=== PATIENT | female | born 1965 | race Caucasian/White ===

== ENCOUNTER 2024-07-02 07:13 | Inpatient (IN) ==
--- NOTE | 2024-07-02 07:29 | Emergency Department Note ---
Impression & Plan ST elevation (STEMI) myocardial infarction, SARS-CoV-2 positive, Atypical chest pain ED Provider Note NAME: MALKA FRYE AGE: 58 SEX: F : 1965 ARRIVES VIA: Walk-In INFORMANT: Patient, Nursing report ED PROVIDER(S): Taras Varghese MD CHIEF COMPLAINT: Chest discomfort, burping, arm pain, diaphoresis MEDICAL DECISION MAKING: Patient presents with the above. May be atypical presentation but initial EKG provided to me via nursing does show concern for possible developing inferior AK with changes anteriorly. IV was established and blood work was obtained along with heart alert being initiated concomitantly. Patient was ordered aspirin Brilinta and heparin as well as nitro. I did message the on-call ammonium nitrate neutralizer Dr. Davidson along with the associated EKG. I subsequently did speak with the patient to make her aware of the concerning findings. I also did speak with the on-call hospitalist service Dr. Steinberg and the patient was taken to the [facility] and pending admission to the medicine service. I also did speak with the vacuum cleaner assembler Dr. Holden to make him aware that the patient may be admitted to the intensive care unit postcatheterization. Prior to going up to the [facility] the patient did have an episode of vomiting as well as several runs of nonsustained ventricular tachycardia. Patient did have Zofran ordered as well as IV amiodarone bolus 150 mg. The patient did feel improved thereafter. The patient was emergently taken to the [facility]. Patient's blood work normal white count H&H and platelet count. Kidney function is unremarkable. LFTs unremarkable. Patient is positive for COVID-19. Initial troponin negative. Critical Care: I have personally spent 35 minutes of critical care time in direct management of this patient. This includes bedside care, interpretation of diagnostic studies, and testing, discussion with consultants, patient, and family members, and other require inpatient management activities. This 35 minutes is in excess of all separately billable procedures. Discussion w/ other healthcare providers: Dr. Davidson computer aided drafter Dr. Steinberg inpatient medicine service Dr. Loyola vacuum cleaner assembler Prior /Outside records reviewed: None Differential diagnosis: Cardiac ischemia, aortic dissection, pulmonary embolism, pneumothorax, pneumonia, pericarditis, myocarditis, GERD, cholecystitis, pancreatitis, musculoskeletal, as well as other pathologies were considered. Diagnostics, as interpreted by me: ECG: Normal sinus rhythm, rate of 66, normal intervals, normal axis, possible developing inferior AK with concavity noted in lead III. V2 depressions noted. No priors for comparison. Cardiac monitoring: An order was placed for continuous cardiac monitoring. The monitor shows a rate of 67 with sinus rhythm. Patient was placed on pulse oximetry Medical decision rules: None Imaging studies: I informally interpreted the patient's chest x-ray does not show obvious pneumonia or pneumothorax with formal report to follow. HPI: Patient presents due to concern for atypical centralized discomfort in the chest with feelings as though she has to burp. The patient does have bilateral arm pain especially with radiation of arm pain down the left arm. Patient states that she has had diaphoresis no reported nausea or vomiting that began at 6 AM while going to work. Patient states the symptoms been fairly constant. Father did have a CABG completed the age of 72. Patient does have a history of hypertension. She does take lisinopril. Non-smoker. Patient denies any cough or fever. No leg swelling or calf pain no history of DVT or PE. Patient denies any recent surgeries procedures or hospitalizations. The patient states that she is not currently established with a PCP but has [facility] in [facility] past. PAST MEDICAL HISTORY: See Below PAST SURGICAL HISTORY: See Below SOCIAL HISTORY: See Below HOME MEDICATIONS: See Below ALLERGIES: See Below VITALS: See Below PHYSICAL EXAMINATION: GENERAL: NAD, non-toxic. EYE EXAM: Normal conjunctiva. PERRL, no anisocoria and EOM's grossly intact w/o pain. OROPHARYNX: Moist mucus membranes, grossly normal dentition. NECK: Trachea midline, no stridor. Supple, no nuchal rigidity, no adenopathy, non-tender. No signs of meningismus. FROM of the neck with good chin to chest and neck extension. LUNGS: Clear to auscultation. Normal chest wall mechanics. HEART: NSR, no MRG. ABDOMEN: Abdomen soft, non-tender, no masses, no rebound or guarding. BACK: No CVA TTP. SKIN: No rashes and no bruising. UPPER EXTREMITIES: Upper extremities are grossly normal. LOWER EXTREMITIES: Grossly normal, no edema. NEURO EXAM: A&O x3, cranial nerves II-XII grossly intact, normal speech, moves all 4 extremities. Past Med/Surg History Problem List (Updated 07/02/24 @ 13:54 by Taras Varghese MD) Atypical chest pain (Acute) SARS-CoV-2 positive (Acute) CAD (coronary artery disease) ST elevation (STEMI) myocardial infarction (Acute) Medical History HLD (hyperlipidemia) HTN (hypertension) Surgical History Hx of colonoscopy Hx of hysterectomy Hx of appendectomy Hx laparoscopic cholecystectomy Family History Other Diabetes Hypertension Social History Smoking Status: Never smoker Second Hand Exposure: No; Do You Dip or Chew Tobacco: No; Tobacco Cessation Education Requested by Patient: No Hx Alcohol Use: No Hx Substance Use: No Preferred Language: Rwandan Communication Ability: Effective Brick Extruder Operator Required: No Beliefs That Will Affect Care: None Current Living Situation: Spouse Current Living Situation Comment: Lives with Other Information That Helps Us Care for You: No Feels Safe at Home: Yes Safety Concerns: Feels Safe At This Time Assistive Devices: None Allergies Allergies Allergy/AdvReac Type Severity Reaction Status Date / Time No Known Allergies Allergy Unverified 07/02/24 09:52 Home Meds Home Medications Medication Instructions Recorded Confirmed lisinopril 20 mg tablet 20 mg PO QAM 07/02/24 07/02/24 Results & Data (ED) Vital Signs Vital Signs - 24 hr 07/02/24 07:20 07/02/24 07:40 07/02/24 07:40 Pulse Rate 66 71 Pulse Rhythm Regular Respiratory Rate 20 17 Respiratory Effort / Characteristics Non-Labored Spontaneous Respiratory Depth Normal Respiratory Pattern Regular Blood Pressure 137/80 Blood Pressure Mean 99 Pulse Oximetry 100 100 100 Oxygen Delivery Method Room Air Room Air Room Air Oxygen Flow Rate 0 Sepsis Recent Fever Within 48 Hours No Sepsis New/Unexplained Change in Mental Status N/A Sepsis Action Taken by Nursing No Action Required 07/02/24 07:41 07/02/24 07:44 Pulse Rate 70 74 Pulse Rhythm Respiratory Rate 18 Respiratory Effort / Characteristics Respiratory Depth Respiratory Pattern Blood Pressure 120/93 Blood Pressure Mean 102 Pulse Oximetry 100 Oxygen Delivery Method Room Air Oxygen Flow Rate Sepsis Recent Fever Within 48 Hours Sepsis New/Unexplained Change in Mental Status Sepsis Action Taken by Assisted Medications Current Medication List: was personally reviewed by me Laboratory Data Attestation: I reviewed the patient's lab results. 07/02/24 09:56 07/02/24 07:39 Lab Results 07/02/24 07/02/24 Range/Units 07:39 07:44 WBC 7.15 (4.8-10.8) K/ul RBC 4.47 (4.20-5.40) M/uL Hgb 12.8 (12.0-16.0) g/dl POC Hgb 13.3 (12.0-16.0) g/dl Hct 38.3 (37.0-47.0) % POC Hct 39 (37-47) % MCV 85.7 (80.0-100.0) fL MCH 28.6 (25.0-34.0) pg MCHC 33.4 (32.0-36.0) g/dL RDW Std Deviation 40.0 (36.4-46.3) fL RDW Coeff of Meryl 12.9 (11.5-14.5) % Plt Count 243 (130-400) K/uL MPV 12.0 (9.4-12.4) fL Immature Gran % (Auto) 0.3 % Neut % (Auto) 47.6 % Lymph % (Auto) 42.0 % [place] % (Auto) 6.4 % Eos % (Auto) 2.4 % Baso % (Auto) 1.3 % Neut # (Auto) 3.41 (1.40-6.50) K/uL Lymph # (Auto) 3.00 (1.20-3.40) K/uL [place] # (Auto) 0.46 (0.11-0.59) K/uL Eos # (Auto) 0.17 (0.00-0.50) K/uL Baso # (Auto) 0.09 (0.00-0.20) K/uL Immature Gran # (Auto) 0.02 (0.01-0.20) K/uL PT 11.2 (9.0-12.0) Seconds INR 1.0 (0.9-1.1) APTT 24 (21-31) Seconds PTT Ratio 0.9 POC Sodium 139 (135-144) mmol/L Sodium 139 (136-145) mmol/L POC Potassium 3.5 (3.3-5.0) mmol/L Potassium 3.6 (3.5-5.1) mmol/L POC Chloride 103 (101-112) mmol/L Chloride 104 (98-107) mmol/L Carbon Dioxide 25 (21-32) mmol/L POC Total CO2 23 L (24-31) mmol/L Anion Gap 10 (3-11) POC Anion Gap 17.0 (16-25) mmol/L POC BUN 19 H (7-18) mg/dl BUN 17 (6-23) mg/dl Creatinine 0.64 (0.6-1.2) mg/dl POC Creatinine 0.7 (0.6-1.3) mg/dl Est Cr Clr Drug Dosing 96.5 ml/min eGFR 103.66 BUN/Creatinine Ratio 26.6 H (10-20) Glucose 159 H (70-99(Fasting)) mg/dl POC Glucose (other) 161 H (70-99) mg/dl Calcium 10.0 (8.6-10.3) mg/dl POC Ioniz Calcium Kelsie 1.20 (1.12-1.32) mmol/l Magnesium 1.9 (1.7-2.4) mg/dl Total Bilirubin 0.5 (0.2-1.0) mg/dl AST 28 (13-39) U/L ALT 34 (7-52) U/L Alkaline Phosphatase 83 (34-104) U/L Total Creatine Kinase 114 (26-192) U/L Troponin I High Sens 12.5 (0-14) pg/ml Total Protein 7.9 (6.0-8.3) gm/dl Albumin 4.6 (3.4-5.0) gm/dl Globulin 3.3 (2.5-4.0) gm/dl Albumin/Globulin Ratio 1.4 (0.9-2) Lipase 13 (11-82) U/L TSH 3.714 (0.300-4.500) uIu/ml SARS-CoV-2 (PCR) POSITIVE A (Negative) Administered Medications Eptifibatide (Integrilin) 75 mg in 100 mls @ 12.336 mls/hr IV .[id number] [facility]; Protocol Stop: 07/02/24 20:30 Last Admin: 07/02/24 09:53 Dose: 2 mcg/kg/min, 12.3 mls/hr Documented By: MEGAN Co-signed By: CHARMAINE Magnesium Sulfate/Dextrose (Magnesium Sulfate / D5w) 1 gm in 100 mls @ 50 mls/hr IV Q2H [facility] Stop: 07/02/24 14:14 Last Admin: 07/02/24 12:54 Dose: 50 mls/hr Documented By: Infusion: 07/02/24 12:54 Dose: Infused Documented By: Admin: 07/02/24 11:26 Dose: 50 mls/hr Documented By: MEGAN Lisinopril (Lisinopril 5 Mg Tab) 5 mg PO QAM [facility] Stop: 08/01/24 09:29 Last Admin: 07/02/24 11:30 Dose: Not Given Documented By: MEGAN Metoprolol Tartrate (Metoprolol Tartrate 25 Mg Tab) 25 mg PO BID [facility] Stop: 08/01/24 09:29 Last Admin: 07/02/24 11:26 Dose: 25 mg Documented By: MEGAN Miscellaneous (Icu Protocol For Hyperglycemia) 1 each N/A ACHS [facility] Stop: 07/04/24 11:29 Last Admin: 07/02/24 11:47 Dose: Not Given Documented By: MEGAN Potassium Chloride (Potassium Chloride Crtab 20 Meq Tabcr) 40 meq PO BID [facility] Stop: 07/02/24 21:01 Last Admin: 07/02/24 11:26 Dose: 40 meq Documented By: MEGAN Discontinued Medications Amiodarone HCl/Dextrose (Amiodarone 360mg / 200ml D5w ([facility] Use Only)) Confirm Administered Dose 360 mg IV .STK-MED ONE Stop: 07/02/24 08:25 Last Admin: 07/02/24 08:44 Dose: 360 mg Documented By: APPLE Amiodarone HCl (Amiodarone Hcl Inj 50 Mg/Ml 3 Ml Vial) Confirm Administered Dose 150 mg IV .STK-MED ONE Stop: 07/02/24 07:54 Last Admin: 07/02/24 08:44 Dose: 150 mg Documented By: APPLE Co-signed By: AURELIANO Aspirin (Aspirin Chew 324 Mg) 324 mg PO NOW STA Stop: 07/02/24 07:36 Last Admin: 07/02/24 07:46 Dose: 324 mg Documented By: ANT Atorvastatin Calcium (Atorvastatin 40 Mg Tab) 40 mg PO QAM [facility] Stop: 08/01/24 09:29 Last Admin: 07/02/24 12:00 Dose: 40 mg Documented By: MEGAN Clopidogrel Bisulfate (Clopidogrel Bisulfate 300 Mg Tab) Confirm Administered Dose 600 mg .ROUTE .STK-MED ONE Stop: 07/02/24 08:45 Last Admin: 07/02/24 08:51 Dose: 600 mg Documented By: [facility] Eptifibatide (Eptifibatide 2 Mg/Ml 10 Ml Vial ([facility] Use Only)) Confirm Administered Dose 20 mg IV .STK-MED ONE Stop: 07/02/24 08:46 Last Admin: 07/02/24 08:51 Dose: 6.8 ml Documented By: [facility] Eptifibatide (Eptifibatide 0.75 Mg/Ml 75mg Vial ([facility] Use Only)) Confirm Administered Dose 75 mg IV .STK-MED ONE Stop: 07/02/24 08:46 Last Admin: 07/02/24 08:50 Dose: 75 mg Documented By: [facility] Eptifibatide (Eptifibatide 2 Mg/Ml 10 Ml Vial ([facility] Use Only)) Confirm Administered Dose 20 mg IV .STK-MED ONE Stop: 07/02/24 08:54 Last Admin: 07/02/24 08:54 Dose: 6.8 ml Documented By: [facility] Fentanyl Citrate (Fentanyl Citrate Pf 100 Mcg/2 Ml Vial) Confirm Administered Dose 100 mcg .ROUTE .STK-MED ONE Stop: 07/02/24 07:41 Last Increment: 07/02/24 08:43 Dose: 50 mcg Documented By: [facility] Heparin Sodium (Porcine) (Heparin (Porcine) 1000 Unit/Ml 10 Ml ([facility] Use Only)) Confirm Administered Dose 10,000 units .ROUTE .STK-MED ONE Stop: 07/02/24 07:40 Last Admin: 07/02/24 08:52 Dose: 9,000 units Documented By: [facility] Heparin Sodium/Sodium Chloride (Heparin In Nss Infusion 1000 Unit/500 Ml (2 U/Ml) Bag) Confirm Administered Dose 3,000 units IV .STK-MED ONE Stop: 07/02/24 07:41 Last Admin: 07/02/24 08:43 Dose: 3,000 units Documented By: [facility] Amiodarone HCl/Dextrose (Nexterone / D5w) 360 mg in 200 mls @ 33.333 mls/hr IV ONE ONE; Protocol Stop: 07/02/24 15:37 Last Infusion: 07/02/24 12:06 Dose: Infused Documented By: MEGAN Co-signed By: CHARMAINE Admin: 07/02/24 09:53 Dose: 1 mg/min, 33.3 mls/hr Documented By: MEGAN Co-signed By: CHARMAINE Ioversol (Optiray 350) Confirm Administered Dose 1 ml .ROUTE .STK-MED ONE Stop: 07/02/24 07:42 Last Admin: 07/02/24 08:43 Dose: 160 ml Documented By: APPLE Midazolam HCl (Midazolam Hcl 1 Mg/Ml 2ml Vial) Confirm Administered Dose 2 mg .ROUTE .STK-MED ONE Stop: 07/02/24 07:40 Last Increment: 07/02/24 08:42 Dose: 1 mg Documented By: APPLE Nicardipine HCl (Nicardipine 2,000 Mcg/20 Ml Syr) Confirm Administered Dose 2,000 mcg .ROUTE .STK-MED ONE Stop: 07/02/24 07:40 Last Admin: 07/02/24 08:42 Dose: 2,000 mcg Documented By: APPLE Nitroglycerin (Nitroglycerin Sl 0.4 Mg/Tab Tab) 0.4 mg SL Q5M PRN PRN Reason: Chest Pain Stop: 08/01/24 07:34 Last Admin: 07/02/24 07:47 Dose: 0.4 mg Documented By: ANT Nitroglycerin/Dextrose (Nitroglycerin/D5w 100mcg/Ml 20ml Syr) Confirm Administered Dose 2,000 mcg .ROUTE .STK-MED ONE Stop: 07/02/24 07:42 Last Admin: 07/02/24 08:44 Dose: 2,000 mcg Documented By: APPLE Ondansetron HCl (Ondansetron Inj 2 Mg/Ml 2 Ml Vial) Confirm Administered Dose 4 mg .ROUTE .STK-MED ONE Stop: 07/02/24 07:53 Last Admin: 07/02/24 08:51 Dose: 4 mg Documented By: APPLE Ticagrelor (Ticagrelor 90 Mg Tab) 180 mg PO ONE ONE Stop: 07/02/24 07:36 Last Admin: 07/02/24 07:46 Dose: 180 mg Documented By: ANT Imaging Data Radiologist's Impression: Chest X-Ray 07/02/24 07:35 EXAM: XR chest 1V portable CLINICAL HISTORY: CHEST PAIN JTF TECHNIQUE: An X-ray image of the chest is obtained in frontal projection. COMPARISON: No prior studies are available for comparison. FINDINGS: Pulmonary Parenchyma: Lungs are clear bilaterally. No evidence of consolidation, collapse, or focal opacities. No pulmonary nodules are identified. No evidence of pleural effusion or pleural thickening. Heart and Mediastinum: Heart size and shape are normal. No mediastinal widening or masses. No hilar or mediastinal lymphadenopathy. Bony Thorax: Bony thorax appears intact without fractures or deformities. Soft Tissues: Soft tissues overlying the chest wall are unremarkable. IMPRESSION: No acute cardiopulmonary abnormalities are identified. Electronically signed by Kait Flores 07-02-2024 08:32 AM Discharge Plan Visit Data Chief Complaint: Illness Stated Complaint: ACHES, BURP FEELING, NOT FEELING RIGHT, LOW SUGAR? ED Provider: Taras Varghese Discharge Problem: ST elevation (STEMI) myocardial infarction, SARS-CoV-2 positive, Atypical chest pain Patient Disposition: Admitted As Inpatient Discharge Problem: ST elevation (STEMI) myocardial infarction Qualifiers: Involved coronary artery: left circumflex coronary artery Qualified Code(s): I 21.21 - ST elevation (STEMI) myocardial infarction involving left circumflex coronary artery
[2024-07-02] MEDS ORDERED: Heparin IV Adult Wt-Based Low-Dose w/ INITIAL Bolus Protocol STA (07:35)
[2024-07-02] MEDS: TICAGRELOR 90 MG TAB PO ONE (07:46)
[2024-07-02] MEDS: ASPIRIN CHEW 324 MG PO STA (07:46)
[2024-07-02] MEDS: NITROGLYCERIN SL 0.4 MG/TAB TAB SL PRN (07:47)
--- NOTE | 2024-07-02 07:54 | Critical Care Consultation ---
Date of Consultation July 02, 2024 Assessment & Plan (1) ST elevation (STEMI) myocardial infarction: Aspirin, beta-mitch, YONIS inhibitor, finishing Integrilin infusion, statin (2) SARS-CoV-2 positive: No hypoxia, this may be an incidental finding, isolation until discharge. (3) CAD (coronary artery disease): History of Present Illness Reason for Consultation: Status post ST elevation MA History of Present Illness Patient is a 58-year-old female who awoke this morning with chest discomfort. She sought treatment in [facility]'s emergency department and was diagnosed with an ST elevation MA. 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 She had nonsustained runs of ventricular tachycardia and was started on amiodarone drip. She has not had recurrence of arrhythmia while in the ICU and is currently without complaint. Allergies Allergy/AdvReac Type Severity Reaction Status Date / Time No Known Allergies Allergy Unverified 07/02/24 09:52 Home Medications Medication Instructions Recorded Confirmed Type lisinopril 20 mg tablet 20 mg PO QAM 07/02/24 07/02/24 History Patient History Medical History HLD (hyperlipidemia) HTN (hypertension) Surgical History Hx of colonoscopy Hx of hysterectomy Hx of appendectomy Hx laparoscopic cholecystectomy Family History Other Diabetes Hypertension Social History Smoking Status: Never smoker Second Hand Exposure: No; Do You Dip or Chew Tobacco: No; Tobacco Cessation Education Requested by Patient: No Hx Alcohol Use: No Hx Substance Use: No Preferred Language: Swedish Communication Ability: Effective Disciplinary Hearing Officer Required: No Beliefs That Will Affect Care: None Current Living Situation: Spouse Current Living Situation Comment: Lives with Other Information That Helps Us Care for You: No Feels Safe at Home: Yes Safety Concerns: Feels Safe At This Time Assistive Devices: None Physical Exam Physical Exam: General: Alert. nontoxic. Skin: Warm, dry, Head: Atraumatic Ears, nose, mouth and throat: airway patent Cardiovascular: Normal peripheral perfusion Respiratory: no respiratory distress Gastrointestinal: Non distended Musculoskeletal: No deformity Results & Data Results & Data Vital Signs (Past 12 Hours) Vital Signs Pulse Resp BP Pulse Ox O2 Del Method O2 Flow Rate 07/02/24 07:44 74 18 120/93 100 Room Air 07/02/24 07:41 70 07/02/24 07:40 71 17 100 Room Air 07/02/24 07:40 100 Room Air 0 07/02/24 07:20 66 20 137/80 100 Room Air Critical Care Results & Data Vital Signs (Past 12 Hours) Vital Signs Temp Pulse Pulse Resp BP Pulse Ox O2 Del Method 07/02/24 13:35 36.6 C 07/02/24 12:47 36.6 C 07/02/24 11:03 68 15 98 07/02/24 10:42 70 16 100 Room Air 07/02/24 10:39 108/82 07/02/24 10:18 66 12 98 07/02/24 10:15 70 20 98 07/02/24 10:06 73 19 99 07/02/24 09:58 36.8 C 69 11 L 97 Room Air 07/02/24 09:50 70 07/02/24 09:45 73 20 99 Room Air 07/02/24 09:42 132/87 07/02/24 09:15 68 14 99 Room Air 07/02/24 09:00 68 14 99 Room Air 07/02/24 07:44 74 18 120/93 100 Room Air 07/02/24 07:41 70 07/02/24 07:40 71 17 100 Room Air 07/02/24 07:40 100 Room Air 07/02/24 07:20 66 20 137/80 100 Room Air O2 Flow Rate 07/02/24 13:35 07/02/24 12:47 07/02/24 11:03 07/02/24 10:42 07/02/24 10:39 07/02/24 10:18 07/02/24 10:15 07/02/24 10:06 07/02/24 09:58 07/02/24 09:50 07/02/24 09:45 07/02/24 09:42 07/02/24 09:15 07/02/24 09:00 07/02/24 07:44 07/02/24 07:41 07/02/24 07:40 07/02/24 07:40 0 07/02/24 07:20 Lab & Micro Results (Past 24 Hours) RBC 4.07 M/uL (4.20-5.40) L 07/02/24 WBC 7.25 K/ul (4.8-10.8) 07/02/24 Hgb 12.0 g/dl (12.0-16.0) 07/02/24 Hct 35.4 % (37.0-47.0) L 07/02/24 MCV 87.0 fL (80.0-100.0) 07/02/24 MCH 29.5 pg (25.0-34.0) 07/02/24 MCHC 33.9 g/dL (32.0-36.0) 07/02/24 RDW Standard Deviation 40.6 fL (36.4-46.3) 07/02/24 RDW Coefficient of Variation 12.7 % (11.5-14.5) 07/02/24 Plt Count 228 K/uL (130-400) 07/02/24 MPV 12.0 fL (9.4-12.4) 07/02/24 Neutrophils (%) (Auto) 79.3 % 07/02/24 Lymphocytes (%) (Auto) 14.9 % 07/02/24 Monocytes # (Auto) 0.33 K/uL (0.11-0.59) 07/02/24 Eosinophils # (Auto) 0.02 K/uL (0.00-0.50) 07/02/24 Immature Granulocyte % (Auto) 0.3 % 07/02/24 Neutrophils # (Auto) 5.76 K/uL (1.40-6.50) 07/02/24 Lymphocytes # (Auto) 1.08 K/uL (1.20-3.40) L 07/02/24 Monocytes # (Auto) 0.33 K/uL (0.11-0.59) 07/02/24 Eosinophils # (Auto) 0.02 K/uL (0.00-0.50) 07/02/24 Basophils # (Auto) 0.04 K/uL (0.00-0.20) 07/02/24 Immature Granulocyte # (Auto) 0.02 K/uL (0.01-0.20) 4 Na 139 mmol/L (136-145) 07/02/24 K 3.6 mmol/L (3.5-5.1) 07/02/24 Cl 104 mmol/L (98-107) 07/02/24 CO2 25 mmol/L (21-32) 07/02/24 Anion Gap 10 (3-11) 07/02/24 BUN 17 mg/dl (6-23) 07/02/24 Creatinine 0.64 mg/dl (0.6-1.2) 07/02/24 BUN/Creatinine Ratio 26.6 (10-20) H 07/02/24 Glu 159 mg/dl (70-99(Fasting)) H 07/02/24 Ca 10.0 mg/dl (8.6-10.3) 07/02/24 Total Bilirubin 0.5 mg/dl (0.2-1.0) 07/02/24 AST 28 U/L (13-39) 07/02/24 ALT 34 U/L (7-52) 07/02/24 Alkaline Phosphatase 83 U/L (34-104) 07/02/24 TP 7.9 gm/dl (6.0-8.3) 07/02/24 Albumin 4.6 gm/dl (3.4-5.0) 07/02/24 Globulin 3.3 gm/dl (2.5-4.0) 07/02/24 Albumin/Globulin Ratio 1.4 (0.9-2) 07/02/24 Mg 1.9 mg/dl (1.7-2.4) 07/02/24 07:39 Calcium Level 10.0 mg/dl (8.6-10.3) 07/02/24 07:39 Prothromb Time International Ratio 1.0 (0.9-1.1) 07/02/24 07:3 9 Diagnostic Findings (Past 24 Hours) Chest X-Ray 07/02/24 07:35 EXAM: XR chest 1V portable CLINICAL HISTORY: CHEST PAIN JTF TECHNIQUE: An X-ray image of the chest is obtained in frontal projection. COMPARISON: No prior studies are available for comparison. FINDINGS: Pulmonary Parenchyma: Lungs are clear bilaterally. No evidence of consolidation, collapse, or focal opacities. No pulmonary nodules are identified. No evidence of pleural effusion or pleural thickening. Heart and Mediastinum: Heart size and shape are normal. No mediastinal widening or masses. No hilar or mediastinal lymphadenopathy. Bony Thorax: Bony thorax appears intact without fractures or deformities. Soft Tissues: Soft tissues overlying the chest wall are unremarkable. IMPRESSION: No acute cardiopulmonary abnormalities are identified. Electronically signed by Kait Flores 07-02-2024 08:32 AM I & O Totals 24 Hours 07/01/24 07/02/24 07/03/24 06:59 06:59 06:59 Intake Total 347.148 / 347.148 Balance 347.148 / 347.148 Cumulative 07/02/24 07:13 thru 07/02/24 14:25 Intake Total 347.148 Balance 347.148 RT Ventilator Mngmt (Last Documented) Ventilator Ordered Settings Respiratory Rate 15 07/02/24 11:03 Ventilator - PT Measurements Respiratory Rate 15 Coding Level of Care Code 18324 IN/OBS CONSULT LVL 2,35M Diagnoses ST elevation (STEMI) myocardial infarction I21.21 Involved coronary artery: left circumflex coronary artery SARS-CoV-2 positive U07.1 Coronary artery disease involving pilot station coronary artery of pilot station heart without angina pectoris I25.10 Coronary Disease-Associated Artery/Lesion type: pilot station artery [place] vs. transplanted heart: pilot station heart Associated angina: without angina (1) ST elevation (STEMI) myocardial infarction Involved coronary artery: left circumflex coronary artery Qualified Code(s): I21.21 - ST elevation (STEMI) myocardial infarction involving left circumflex coronary artery (3) CAD (coronary artery disease) Coronary Disease-Associated Artery/Lesion type: pilot station artery [place] vs. transplanted heart: pilot station heart Associated angina: without angina Qualified Code(s): I25.10 - Atherosclerotic heart disease of pilot station coronary artery without angina pectoris
[2024-07-02 07:56] LABS: iSTAT Creatinine 0.7 mg/dl (0.6-1.3); iSTAT Hemoglobin 13.3 g/dl (12.0-16.0); iSTAT Ionized Calcium 1.2 mmol/l (1.12-1.32); iSTAT Potassium 3.5 mmol/L (3.3-5.0)
[2024-07-02 08:00] LABS: Basophils # (auto) 0.09 K/uL (0.00-0.20); Basophils % (auto) 1.3 %; Eosinophils # (auto) 0.17 K/uL (0.00-0.50); Eosinophils % (auto) 2.4 %; Hematocrit (blood only) 38.3 % (37.0-47.0); Hemoglobin 12.8 g/dl (12.0-16.0); Immature Granulocytes # (auto) 0.02 K/uL (0.01-0.20); Immature Granulocytes % (auto) 0.3 %; Mean Corpuscular Hemoglobin 28.6 pg (25.0-34.0); Mean Corpuscular Hgb Conc 33.4 g/dL (32.0-36.0); Mean Corpuscular Volume 85.7 fL (80.0-100.0); Monocytes # (auto) 0.46 K/uL (0.11-0.59); Monocytes % (auto) 6.4 %; Neutrophils # (auto) 3.41 K/uL (1.40-6.50); Neutrophils % (auto) 47.6 %; Platelet Count 243 K/uL (130-400); RDW Coefficient of Variation 12.9 % (11.5-14.5); Red Blood Count 4.47 M/uL (4.20-5.40); White Blood Count 7.15 K/ul (4.8-10.8)
[2024-07-02 08:22] LABS: Albumin Globulin Ratio 1.4 (0.9-2); Albumin Level 4.6 gm/dl (3.4-5.0); BUN Creatinine Ratio 26.6 (10-20); Bilirubin,Total 0.5 mg/dl (0.2-1.0); Creatinine Clr Calc Pharmacy 96.5 ml/min; Globulin 3.3 gm/dl (2.5-4.0); Magnesium 1.9 mg/dl (1.7-2.4); Potassium 3.6 mmol/L (3.5-5.1); Total Protein 7.9 gm/dl (6.0-8.3)
[2024-07-02 08:26] LABS: Partial Thromboplastin Ratio 0.9; Partial Thromboplastin Time 24 Seconds (21-31); Prothrombin Time 11.2 Seconds (9.0-12.0)
[2024-07-02 08:28] LABS: Troponin I High Sensitivity 12.5 pg/ml (0-14)
--- NOTE | 2024-07-02 08:33 | XRay Report ---
EXAM: XR chest 1V portable CLINICAL HISTORY: CHEST PAIN JTF TECHNIQUE: An X-ray image of the chest is obtained in frontal projection. COMPARISON: No prior studies are available for comparison. FINDINGS: Pulmonary Parenchyma: Lungs are clear bilaterally. No evidence of consolidation, collapse, or focal opacities. No pulmonary nodules are identified. No evidence of pleural effusion or pleural thickening. Heart and Mediastinum: Heart size and shape are normal. No mediastinal widening or masses. No hilar or mediastinal lymphadenopathy. Bony Thorax: Bony thorax appears intact without fractures or deformities. Soft Tissues: Soft tissues overlying the chest wall are unremarkable. IMPRESSION: No acute cardiopulmonary abnormalities are identified. Electronically signed by Kait Flores 07-02-2024 08:32 AM
[2024-07-02 08:37] LABS: Thyroid Stimulating Hormone 3.714 uIu/ml (0.300-4.500)
[2024-07-02] MEDS: MIDAZOLAM HCL 1 MG/ML 2ML VIAL ONE (08:42)
[2024-07-02] MEDS: niCARdipine 2,000 MCG/20 ML SYR ONE (08:42)
[2024-07-02] MEDS: HEPARIN (PORCINE) 1000 UNIT/ML 10 ML (CATH LAB USE ONLY) ONE (08:42)
[2024-07-02] MEDS: OPTIRAY 350 ONE (08:43)
[2024-07-02] MEDS: fentaNYL citrate PF 100 MCG/2 ML VIAL ONE (08:43)
[2024-07-02] MEDS: AMIODARONE 360MG / 200ML D5W (CATH LAB USE ONLY) IV ONE (08:44)
[2024-07-02] MEDS: AMIODARONE HCL INJ 50 MG/ML 3 ML VIAL IV ONE (08:44)
[2024-07-02] MEDS: NITROGLYCERIN/D5W 100MCG/ML 20ML SYR ONE (08:44)
[2024-07-02] MEDS ORDERED: ONDANSETRON INJ 2 MG/ML 2 ML VIAL IV PRN (08:49)
[2024-07-02] MEDS ORDERED: ACETAMINOPHEN 325 MG TAB PO PRN (08:49)
[2024-07-02] MEDS ORDERED: EPTIFIBATIDE BOLUS/DRIP IV STA (08:49)
[2024-07-02] MEDS ORDERED: ATROPINE SULFATE 0.1 MG/ML 10ML SYR IV PRN (08:49)
[2024-07-02] MEDS: EPTIFIBATIDE 0.75 MG/ML 75MG VIAL (CATH LAB USE ONLY) IV ONE (08:50)
[2024-07-02] MEDS: ONDANSETRON INJ 2 MG/ML 2 ML VIAL ONE (08:51)
[2024-07-02] MEDS: EPTIFIBATIDE 2 MG/ML 10 ML VIAL (CATH LAB USE ONLY) IV ONE ×2 (08:51→08:54)
[2024-07-02] MEDS: CLOPIDOGREL BISULFATE 300 MG TAB ONE (08:51)
--- NOTE | 2024-07-02 08:57 | Pre Anesthesia Assessment ---
Date of Service July 02, 2024 Pre Sedation Assessment Vital Signs Pulse Resp BP Pulse Ox O2 Del Method O2 Flow Rate 07/02/24 07:44 74 18 120/93 100 Room Air 07/02/24 07:41 70 07/02/24 07:40 71 17 100 Room Air 07/02/24 07:40 100 Room Air 0 07/02/24 07:20 66 20 137/80 100 Room Air Cardiovascular Additional Comments: Irregular rhythm. Normal rate. No murmur. Respiratory normal respiratory effort, lungs clear to auscultation Pre-Sedation Airway Assessment Smoking Status: Never smoker Mallampati 2 ASA 4 Notes The planned sedation has been discussed with the patient. Informed Consent was obtained. I have identified the patient, determined the appropriateness of sedation and have assessed the patient immediately prior to the procedure. All medicine(s) and interventions are by my order.
--- NOTE | 2024-07-02 08:58 | Post Anesthesia Assessment ---
Date of Service July 02, 2024 Post Sedation Assessment Vital Signs Pulse Resp BP Pulse Ox O2 Del Method O2 Flow Rate 07/02/24 07:44 74 18 120/93 100 Room Air 07/02/24 07:41 70 07/02/24 07:40 71 17 100 Room Air 07/02/24 07:40 100 Room Air 0 07/02/24 07:20 66 20 137/80 100 Room Air Recovery Score Activity: Moves 4 extremities Respiration: Deep Breath/Cough Circulation: +/-20% PreAnes Value Consciousness: Fully Awake Oxygen Saturation: > 92% On Room Air Discharge Sedation Level of Care: Fast Track Phase II Post Sedation Plan On clinical assessment, the patient appears to have tolerated the sedation without complications. Patient is recovering as anticipated. Patient will continue to be monitored by nursing and may be discharged when sedation discharge criteria are met per below protocol. Upon Completions of procedure up to 15 minutes continue every 5 minute vital signs and the P.A.R. score; then discharge to a Phase I or Fast Track to Phase II per the following guidelines: * Discharge Patient to appropriate Phase II area if PAR is 8 or greater or return to pre- procedure baseline. The post - procedure orders will be as directed. * If PAR score is less than 8 or not return to pre-procedure baseline then patient will follow Phase I monitoring till PAR is reached for Phase II. The Phase I may be done in procedure room or may call to secure a Phase I area. * If naloxone or flumazenil are used for reversal, hold in Phase I for continued monitoring from when last reversal dose was given for a minimum of 60 minutes or longer pending the nurse and/or physician discretion of patient condition before discharge to Phase II. Please call the Sedation Physician to re-evaluate and complete post-note for discharge to Phase II area. Do NOT discharge from procedure sedation or Phase 1 until post- sedation evaluation note is complete by procedure /sedation MD Sedation Discharge Instructions to be given to the patient at discharge to home. [facility] Procedure Codes (Charges) Indication for Procedure Indication for procedure: Acute WI Sedation/Anesthesia Procedure 1: Sedation/Anesthesia: 83955 Mod Sedation by the same physician;Init15 Min Child Age 5 & Up Total Sedation Time (minutes): 32 Procedure 2: Sedation/Anesthesia: 24818 Mod Sedation by the same physician; Ea [id number] Minutes Total Sedation Time (minutes): 17
[2024-07-02] MEDS ORDERED: 0.2 MICRON FILTER SET 1 EACH IV ONE (09:38)
[2024-07-02] MEDS ORDERED: AMIODARONE IV BOLUS & DRIP IV STA (09:38)
[2024-07-02] MEDS ORDERED: Patient's ALLERGY Info needs ENTERED SCH (09:45)
[2024-07-02] MEDS: AMIODARONE / D5W 360 MG/200 ML BAG IV ONE (09:53)
[2024-07-02] MEDS: EPTIFIBATIDE 75 MG/100 ML VIAL IV SCH (09:53)
--- NOTE | 2024-07-02 10:12 | History & Physical Report ---
Date of Service July 02, 2024 Assessment & Plan (1) ST elevation (STEMI) myocardial infarction: (2) CAD (coronary artery disease): (3) HTN (hypertension): (4) SARS-CoV-2 positive: Plan #Acute STEMI #CAD #VTach pt currently admitted to ICU under care of pulmonary care nurse and interventionalist S/P PCI with KADEN x 3 - awaiting full cath report GDMT with ASA, plavix, Statin, metoprolol and lisinopril ordered currently on IV Amiodarone gtt due to runs of Vtach in ED will replace Magnesium and K to keep > 2.0 and 4.0 respectively cycle trops til peak, echocardiogram [facility] cardiology consulted #HTN: on lisinopril 20mg [employer]IG[employer]IVE [employer]ENT, currently on 5mg, uptitrate based on need, Bp curently 120/93 #Sars COV-2: pt asymptomatic, no medical therapy indicated #DVT ppx: Pt currently on Integrilin, add scds FULL CODE PCP: previously was [facility], will need to establish with another provider, unsure if she wants to continue with [facility], will need to inquire prior to d/c Dispo: admitted to ICU Pt was seen and examined in collaboration with Dr. Steinberg, please see addendum I spent a total of 76 minutes reviewing notes, outpatient records, labs, medication, coordinating, documenting and providing care for this patient excluding time spent in the performance of separately billed services. Admission and Anticipated Discharge Date Admission Date: July 02, 2024 History of Present Illness Chief Complaint: Chest discomfort and bilateral arm pain prior to arrival. Primary Care Provider: NO PCP This is a 58 yr old F who has a known PMH of HTN who presented to ED 2/2 chest discomfort and bilateral arm pain. She states when she woke up this morning she felt a discomfort on her chest, "like I had to burp." It was associated with bilateral arm pain and diaphoresis. "I felt as if I had low sugar." She denied any lightheaded, dizziness, SOB, cough, hemoptysis, palpitations or nausea. Upon arrival to the ED she did have an episode of vomiting. In ED she had ECG changes concerning for developing inferior OH with changes in Leads III, AVF. A heart alert was called. Per ICU report pt had a few runs of Vtach in the ED; therefore she was started on Amiodarone gtt. Pt was sent to microbiology lab manager where she received 3 KADEN to circumflex. Final report from Dr. Neri is still pending. Pt is in bed with and son at bedside. She is tearful. She reports continued bilateral arm pain, but it is much less severe. She denies Chest pain, sob, dizziness, lightheaded, cough, n or v. She denies hx of similar sx in the past. She denies tobacco use or drug use. She does socially drink alcohol but not on a regular basis. She has a FH of CAD in grandparents and Father had CABG in his 70s. Previously followed with Dr. Nelson, but reports she currently doesn't have a PCP. She has been compliant with her daily lisinopril. Allergies Allergy/AdvReac Type Severity Reaction Status Date / Time No Known Allergies Allergy Unverified 07/02/24 09:52 Home Medications Medication Instructions Recorded Confirmed Type lisinopril 20 mg tablet 20 mg PO QAM 07/02/24 07/02/24 History Past Med/Surg History Problem List SARS-CoV-2 positive CAD (coronary artery disease) ST elevation (STEMI) myocardial infarction Medical History HLD (hyperlipidemia) HTN (hypertension) Surgical History Hx of colonoscopy Hx of hysterectomy Hx of appendectomy Hx laparoscopic cholecystectomy Family History Other Diabetes Hypertension Social History Smoking Status: Never smoker Second Hand Exposure: No; Do You Dip or Chew Tobacco: No; Tobacco Cessation Education Requested by Patient: No Hx Alcohol Use: No Hx Substance Use: No Preferred Language: French Communication Ability: Effective [place] Required: No Beliefs That Will Affect Care: None Current Living Situation: Spouse Current Living Situation Comment: Lives with Other Information That Helps Us Care for You: No Feels Safe at Home: Yes Safety Concerns: Feels Safe At This Time Assistive Devices: None Review of Systems Review of Systems: All systems reviewed & are unremarkable except as noted in HPI & below Physical Exam Physical Exam: Constitutional: WD/WN, vitals as above, NAD, sitting up in bed, pleasant but tearful, conversing easily Head: Normocephalic, Atraumatic Eyes: PERRL, conjunctivae normal, anicteric sclerae ENMT: external ear and nose normal, oropharynx normal Neck: trachea midline, no thyromegaly normal visual inspection Respiratory: normal respiratory effort, lungs clear to auscultation, no wheeze, rales, rhonchi. Normal insp/exp effort, no accessory muscle use Cardiovascular: RRR, no murmur, no edema, + R radial band intact, R hand cool b ut good cap refill, denies pain/numbness Vessels: no JVD or carotid bruit Chest: normal inspection of chest Abdomen: normal bowel sounds, soft, nontender, no hepatosplenomegaly Musculoskeletal: no cyanosis or clubbing, arom x 4 Skin: no rashes, warm and dry normal turgor Neurologic: PERRL, EOMI, accommodation nl, no face palsy, no dysarthria CN's II-XI intact bilaterally and moves all extremities Psychiatric: A+Ox3, euthymic affect Lymphatic: no cervical or axillary lymphadenopathy : deferred Results & Data Results & Data Vital Signs (Past 12 Hours) Vital Signs Pulse Pulse Resp BP Pulse Ox O2 Del Method O2 Flow Rate 07/02/24 09:15 68 14 99 Room Air 07/02/24 09:00 68 14 99 Room Air 07/02/24 07:44 74 18 120/93 100 Room Air 07/02/24 07:41 70 07/02/24 07:40 71 17 100 Room Air 07/02/24 07:40 100 Room Air 0 07/02/24 07:20 66 20 137/80 100 Room Air Laboratory Results I have independently reviewed and interpreted patient's admitting labs including CBC, CMP, PTT, PT/INR, mag and troponin. Diagnostic Findings Chest X-Ray 07/02/24 07:35 EXAM: XR chest 1V portable CLINICAL HISTORY: CHEST PAIN JTF TECHNIQUE: An X-ray image of the chest is obtained in frontal projection. COMPARISON: No prior studies are available for comparison. FINDINGS: Pulmonary Parenchyma: Lungs are clear bilaterally. No evidence of consolidation, collapse, or focal opacities. No pulmonary nodules are identified. No evidence of pleural effusion or pleural thickening. Heart and Mediastinum: Heart size and shape are normal. No mediastinal widening or masses. No hilar or mediastinal lymphadenopathy. Bony Thorax: Bony thorax appears intact without fractures or deformities. Soft Tissues: Soft tissues overlying the chest wall are unremarkable. IMPRESSION: No acute cardiopulmonary abnormalities are identified. Electronically signed by Kait Flores 07-02-2024 08:32 AM Medications Administered Current Inpatient Medications Acetaminophen (Acetaminophen 325 Mg Tab) 650 mg PO Q4H PRN PRN Reason: MILD Pain (Scale 1,2,3) Stop: 08/01/24 08:48 Aspirin (Aspirin 325 Mg Ectab) [facility] Stop: 08/02/24 08:59 Atorvastatin Calcium (Atorvastatin 40 Mg Tab) [facility] Stop: 08/01/24 09:29 Atropine Sulfate (Atropine Sulfate 0.1 Mg/Ml 10ml Syr) 0.5 mg IV UD PRN PRN Reason: bradycardia/hypotension Stop: 08/01/24 08:48 Clopidogrel Bisulfate (Clopidogrel Bisulfate 75 Mg Tab) 75 mg PO [facility] Stop: 08/02/24 08:59 Eptifibatide (Integrilin) 75 mg in 100 mls @ 12.336 mls/hr IV .Q8H7M SUKHI; Protocol Stop: 07/02/24 20:30 Last Admin: 07/02/24 09:53 Dose: 2 mcg/kg/min, 12.3 mls/hr Amiodarone HCl/Dextrose (Nexterone / D5w) 360 mg in 200 mls @ 33.333 mls/hr IV ONE ONE; Protocol Stop: 07/02/24 15:37 Last Admin: 07/02/24 09:53 Dose: 1 mg/min, 33.3 mls/hr Amiodarone HCl/Dextrose (Nexterone / D5w) 360 mg in 200 mls @ 16.667 mls/hr IV .Q12H [facility] Stop: 08/01/24 15:44 Lisinopril (Lisinopril 5 Mg Tab) [facility] Stop: 08/01/24 09:29 Metoprolol Tartrate (Metoprolol Tartrate 25 Mg Tab) 25 mg PO BID [facility] Stop: 08/01/24 09:29 Miscellaneous (Icu Protocol For Hyperglycemia) 1 each N/A ACHS [facility] Stop: 07/04/24 11:29 Miscellaneous (Stop Order: Eptifibatide) 1 each N/A ONE ONE Stop: 07/02/24 20:31 Ondansetron HCl (Ondansetron Inj 2 Mg/Ml 2 Ml Vial) 4 mg IV Q6H PRN PRN Reason: Nausea And Vomiting Stop: 08/01/24 08:48 ECG Additional Comments: I have independently reviewed and interpreted patient's admitting EKG which revealed: 66., NSR, qtc 426ms, evolving inferior STEMI leads III and AVF COVID-19 Results Results COVID-19 Adm Lab Results: RBC 4.07 M/uL (4.20-5.40) L 07/02/24 WBC 7.25 K/ul (4.8-10.8) 07/02/24 Hgb 12.0 g/dl (12.0-16.0) 07/02/24 Hct 35.4 % (37.0-47.0) L 07/02/24 Plt Count 228 K/uL (130-400) 07/02/24 Neutrophils (%) (Auto) 79.3 % 07/02/24 Lymphocytes (%) (Auto) 14.9 % 07/02/24 Monocytes # (Auto) 0.33 K/uL (0.11-0.59) 07/02/24 Eosinophils # (Auto) 0.02 K/uL (0.00-0.50) 07/02/24 Immature Granulocyte % (Auto) 0.3 % 07/02/24 Neutrophils # (Auto) 5.76 K/uL (1.40-6.50) 07/02/24 Lymphocytes # (Auto) 1.08 K/uL (1.20-3.40) L 07/02/24 Monocytes # (Auto) 0.33 K/uL (0.11-0.59) 07/02/24 Eosinophils # (Auto) 0.02 K/uL (0.00-0.50) 07/02/24 Basophils # (Auto) 0.04 K/uL (0.00-0.20) 07/02/24 Immature Granulocyte # (Auto) 0.02 K/uL (0.01-0.20) 4 Na 139 mmol/L (136-145) 07/02/24 K 3.6 mmol/L (3.5-5.1) 07/02/24 Cl 104 mmol/L (98-107) 07/02/24 CO2 25 mmol/L (21-32) 07/02/24 Anion Gap 10 (3-11) 07/02/24 BUN 17 mg/dl (6-23) 07/02/24 Creatinine 0.64 mg/dl (0.6-1.2) 07/02/24 BUN/Creatinine Ratio 26.6 (10-20) H 07/02/24 Glucose Level 159 mg/dl (70-99(Fasting)) H 07/02/24 Ca 10.0 mg/dl (8.6-10.3) 07/02/24 Total Bilirubin 0.5 mg/dl (0.2-1.0) 07/02/24 AST/SGOT 28 U/L (13-39) 07/02/24 ALT/SGPT 34 U/L (7-52) 07/02/24 Alkaline Phosphatase 83 U/L (34-104) 07/02/24 Total Protein 7.9 gm/dl (6.0-8.3) 07/02/24 Albumin 4.6 gm/dl (3.4-5.0) 07/02/24 Globulin 3.3 gm/dl (2.5-4.0) 07/02/24 Albumin/Globulin Ratio 1.4 (0.9-2) 07/02/24 Total CK 114 U/L (26-192) 07/02/24 PTT 24 Seconds (21-31) 07/02/24 INR 1.0 (0.9-1.1) 07/02/24 Triglycerides Level 64 mg/dl (0-150) 07/02/24 COVID-19 PCR POSITIVE (Negative) A 07/02/24 Chest X-Ray 07/02/24 Code Status & VTE Plan Code Status FULL CODE Supervising Physician Co-Signing Physician Notes Patient seen and examined at bedside. Discussed with above provider. Patient admitted to ICU for closer monitoring after cardiac cath. She reports that the chest pain has resolved. She denies any shortness of breath; vital signs are stable. Patient underwent coronary intervention for single-vessel disease left circumflex. Repeat EKG showed normal sinus rhythm; prior ST and T wave changes have resolved. Plan to continue DAPT, lisinopril, beta-mitch and statin. Echocardiogram tomorrow a.m.; general cardiology on consult. I have reviewed the advanced practitioner's documentation, and I agree with, and take responsibility for the plan of care I spent a total of 30 minutes coordinating, documenting, and providing care for this patient excluding time spent in the performance of separately billed services. All of the aforementioned completed while collaborating with the assigned advanced practitioner for a full treatment plan
[2024-07-02 10:24] LABS: Basophils # (auto) 0.04 K/uL (0.00-0.20); Basophils % (auto) 0.6 %; Eosinophils # (auto) 0.02 K/uL (0.00-0.50); Eosinophils % (auto) 0.3 %; Hematocrit (blood only) 35.4 % (37.0-47.0); Immature Granulocytes # (auto) 0.02 K/uL (0.01-0.20); Immature Granulocytes % (auto) 0.3 %; Lymphocytes # (auto) 1.08 K/uL (1.20-3.40); Lymphocytes % (auto) 14.9 %; Mean Corpuscular Hemoglobin 29.5 pg (25.0-34.0); Mean Corpuscular Hgb Conc 33.9 g/dL (32.0-36.0); Monocytes # (auto) 0.33 K/uL (0.11-0.59); Monocytes % (auto) 4.6 %; Neutrophils # (auto) 5.76 K/uL (1.40-6.50); Neutrophils % (auto) 79.3 %; Platelet Count 228 K/uL (130-400); RDW Coefficient of Variation 12.7 % (11.5-14.5); RDW Standard Deviation 40.6 fL (36.4-46.3); Red Blood Count 4.07 M/uL (4.20-5.40); White Blood Count 7.25 K/ul (4.8-10.8)
[2024-07-02 10:51] LABS: Estimated Average Glucose 117 mg/dl; Hemoglobin A1C 5.7 % (4.5-5.6)
[2024-07-02] MEDS: lisinopril 5 MG TAB PO SCH (11:26)
[2024-07-02] MEDS: METOPROLOL TARTRATE 25 MG TAB PO SCH (11:26)
[2024-07-02] MEDS: ATORVASTATIN 40 MG TAB PO SCH (11:26)
[2024-07-02] MEDS: MAGNESIUM SULFATE / D5W 1 GM/100 ML BAG IV SCH (11:26)
[2024-07-02] MEDS: POTASSIUM CHLORIDE CRTAB 20 MEQ TABCR PO SCH (11:26)
--- OUTSIDE RECORDS SUMMARY | 2024-07-02 11:27 | External Medical Summary | Summary of Care ---
Author Name Unknown Organization [facility] Address [address] [facility] [address] Phone [phone] Care Team Providers Care Resident Hall Director Name Role Phone Unavailable Primary Care Provider Unavailabl e Reason for Visit * Reason Comments eRx-Medication Refill Encounter Details Date Type Department Care Team (Late st Contact Info) Description 04/14/2024 Refill Family Medicine [address] [place] [id number] Mani Parker MD [address] [place] [address] [place] [id number] Essential hypertension with goal blood pressure less than 140/90 Allergies No known active allergiesdocumented as of this encounter (statuses as of 04/17/2024) Medications Medication Sig Dispensed Refills Start Date End Date Status Lisinopril 20 MG Oral Tablet (Prinivil)Indicati ons:Essential hypertension with goal blood pressure less than 140/90 TAKE 1 TABLET BY MOUTH EVERY DAY IN THE MORNING 90 Tablet 04/17/2024 Active Lisinopril 20 MG Oral Tablet (Prinivil)Indicati ons:Essential hypertension with goal blood pressure less than 140/90 TAKE 1 TABLET BY MOUTH EVERY DAY IN THE MORNING 90 Tablet 1 09/23/2023 04/17/2024 Discontinued documented as of this encounter (statuses as of 04/17/2024) Active Problems Problem Noted Date Diagnosed Date Essential hypertension with goal blood pressure less than 140/90 04/27/2016 Umbilical hernia 10/10/2012 ADVANCE DIRECTIVE INFORMATION 01/27/2012 Overview: No, Advance Directive brochure offered , patient declined. Hypoglycemia Hyperlipidemia with target LDL less than 130 Overview: ICD-10 update of inactive term Persistent insomnia documented as of this encounter (statuses as of 04/17/2024) Resolved Problems Problem Noted Date Diagnosed Date Resolved Date Costal chondritis 10/10/2012 09/27/2014 HTN, goal below 140/90 08/25/201204/27 Hyperlipidemia LDL goal <160 08/25/2012 09/29/2015 Overview: LDL 211 documented as of this encounter (statuses as of 04/17/2024) Immunizations Name Administration Dates Next Due TDAP (age 10 and older)(Boostrix) 11/03/2018 documented as of this encounter Social History Tobacco Use Types Packs/Day Years Used Date Smoking Tobacco: Never Smokeless Tobacco: Never Alcohol Use Standard Drinks/Week Comments Yes 0 (1 standard drink = 0.6 oz pur e alcohol) occasioanally PHQ-2 Answer Date Recorded PHQ-2 Score 0 05/14/2018 Utilities Answer Date Recorded Do you have trouble paying y our heating, water, or electric bill? (Adult - for ages 18 years and over) Not on file 12/27/2023 Is your family able to pay t he heat, water, or electric bill? (Household - for ages 0-17 years) Not on file 12/27/2023 Does your family have access to good internet? (Household - for ages 0-17 years) Not on file 12/27/2023 Social Connections Answer Date Recorded How often do you feel lonely or isolated from those around you? (Adult - for ages 18 years and over) Not on file 12/27/2023 Sex and Gender Information Value Date Recorded Sex Assigned at Not on file Gender Identity Not on file Sexual Orientation Not on file Job Start Date Occupation Industry Not on file Not on file Not on file documented as of this encounter Miscellaneous Notes * Telephone Encounter - Patsy Butts RN - 04/16/2024 3:43 PM EDTPending Prescriptions: Disp Refills Lisinopril 20 MG Oral Tablet (Prinivil) 90 Tab*0 Sig: TAKE 1 TABLET BY MOUTH EVERY DAY IN THE MORNING * Telephone Encounter - Patsy Butts RN - 04/16/2024 3:42 PM EDT Please call pt to establish with a doctor Med pended * Telephone Encounter - Brianna Horn RPh - 04/16/2024 3:22 PM EDTPending Prescriptions: Disp Refills Lisinopril 20 MG Oral Tablet (Prinivil) 90 Tab*0 Sig: TAKE 1 TABLET BY MOUTH EVERY DAY IN THE MORNING * Telephone Encounter - Brianna Horn RP - 04/16/2024 3:21 PM EDT Patient has no PCP under whom to authorize refills. Please approve if appropriate. Thanks, Brianna Horn, PharmD Clinical Pharmacist [facility] ([facility]) [phone] 04/16/2024 3:21 PM * Telephone Encounter - Brianna Horn RPh - 04/16/2024 3:20 PM EDT Pending Prescriptions: Disp Refills Lisinopril 20 MG Oral Tablet (Prinivil) [*90 Tab*0 Sig: TAKE 1 TABLET BY MOUTH EVERY DAY IN THE MORNING Last Visit: 03/28/2023 (in office), Visit date not found (telemedicine) Next Visit: Visit date not found If no future appointments scheduled, and last appointment is greater than a year ago, please schedule patient for a follow-up appointment Last date the medication was ordered: 09/23/23 Pharmacy: [id number] [id number] [facility] Is this request for a controlled substance? No Urine Drug Screen:No results found for this or any previous visit. Patient Phone Numbers Labs: Lab Results Component Value Date/Time CREAT 0.8 03/25/2023 08:46 AM CREAT 0.7 11/03/2018 11:59 AM POTASSIUM 4.3 03/25/2023 08:46 AM POTASSIUM 4.0 11/03/2018 11:59 AM TSH 2.08 08/25/2012 08:22 AM LDL 148 (H) 10/30/2020 02:08 PM LDL 126 10/06/2017 08:11 AM LDL NOT APPLICABLE 10/06/2017 08:11 AM ALT 67 (H) 10/30/2020 02:08 PM ALT 25 08/25/2012 08:22 AM documented in this encounter Plan of Treatment Health Maintenance Due Date Last Done Comments HIV Screening 11/18/1982 Hepatitis C Screening 11/18/1985 Hepatitis B Vaccine (1 of 3 - 19+ 3-dose series) 11/18/1986 Fecal Occult Blood Test 11/18/2012 09/24/2010 Sigmoidoscopy 11/18/2012 Zoster Vaccines (1 of 2) 11/18/2017 Depression Screening 10/06/2018 10/06/2017 Colonoscopy 10/21/2020 10/21/2010 COVID-19 Vaccine ( season) 2024 Influenza Vaccine (FLU shot) (#1) 2024 10/06/2017 (Refused) GFR 03/25/2024 03/25/2023, 04/2 08/2020, 11/03/2018, Additional history exists Mammogram 05/12/2024 05/12/2023, 01/08, 05/14/2010 Albumin/Creatinine Ratio 08/25/2025 08/25/2022, 10/10 Cologuard 09/08/2025 09/08/2022, 08/12, 08/30/2022 Colorectal Cancer Screening 09/08/2025 Lipid Panel 10/30/2025 10/30/2020, 09/09, 10/04/2016, Additional history exists Diabetes Screening 03/25/2026 03/25/2023, 0 10/30/2020, 11/03/2018, Additional history exists DTap/Tdap Vaccines (3 - Td or Tdap) 11/03/2028 11/03/2018, 10/06/2017 (Refused) HPV (Gardasil) Vaccine Aged Out No lo nger eligible based on patient's age to complete this topic MENINGOCOCCAL (MENACTRA/MENVEO) Aged Out No longer eligible based on patient's age to complete this topic Pneumococcal Vaccine: Pediatrics (0 to 5 Years) and At-Risk Patients (6 to 64 Years) Aged Out No longer eligible based on patient's age to complete this topic documented as of this encounter Medical Devices Not on filedocumented as of this encounter Visit Diagnoses Diagnosis Essential hypertension with goal blood pressure less than 140/90 documented in this encounter
--- NOTE | 2024-07-02 11:35 | Electrocardiogram Report ---
Test Reason : Blood Pressure : */* mmHG Vent. Rate : 66 BPM Atrial Rate : 66 BPM P-R Int : 164 ms QRS Dur : 96 ms QT Int : 418 ms P-R-T Axes : 55 27 70 degrees QTcB Int : 438 ms Age and gender specific ECG analysis Normal sinus rhythm ST elevation consider inferior injury or acute infarct ACUTE MD / STEMI Consider right ventricular involvement in acute inferior infarct Abnormal ECG No previous ECGs available Confirmed by Heladio Carter ([id number]) on 07/02/2024 11:35:16 AM Referred By: Confirmed By: Heladio Carter
--- NOTE | 2024-07-02 11:39 | Electrocardiogram Report ---
Test Reason : Blood Pressure : */* mmHG Vent. Rate : 62 BPM Atrial Rate : 62 BPM P-R Int : 164 ms QRS Dur : 92 ms QT Int : 420 ms P-R-T Axes : 63 16 62 degrees QTcB Int : 426 ms Normal sinus rhythm Normal ECG When compared with ECG of 02-Jul-2024 07:29, (unconfirmed) ST no longer elevated in Inferior leads ST no longer depressed in Lateral leads Confirmed by Heladio Carter ([id number]) on 07/02/2024 11:39:28 AM Referred By: REFERRED SELF Confirmed By: Heladio Carter
[2024-07-02] MEDS: ICU Protocol for HYPERglycemia SCH (11:47)
--- NOTE | 2024-07-02 11:48 | Cardiology Consultation ---
Date of Consultation July 02, 2024 Assessment & Plan (1) CAD (coronary artery disease): (2) ST elevation (STEMI) myocardial infarction: (3) SARS-CoV-2 positive: (4) HTN (hypertension): (5) HLD (hyperlipidemia): Plan 58-year-old female with cardiovascular risk factors of family history, hypertension, hyperlipidemia untreated presented with acute onset chest pain at 6:00 this morning with EKG criteria for inferior posterior acute ST elevation myocardial infarction. Presentation notable for transient nonsustained ventricular tachycardia. Patient taken to the [facility] as a heart alert promptly and underwent coronary intervention for single-vessel disease left circumflex. After initial symptoms patient has stabilized with resolve of all chest pain with normalization of EKG. Recommendations: 1. Acute ST elevation myocardial infarction with successful revascularization with drug-eluting stent. Continue dual antiplatelet therapy with aspirin and Plavix. Patient to complete Integrilin infusion Continue reduced dose lisinopril 2. Nonsustained ventricular tachycardia ischemia mediated. Will discontinue IV amiodarone. Begin oral beta-mitch. 3. Hyperlipidemia with acute coronary disease will place on high-dose statin 4. COVID-positive without acute respiratory symptoms Cardiology will follow, continue telemetry History of Present Illness Reason for Consultation: ST elevation myocardial infarction Requesting Physician: Chun crow History of Present Illness Patient is a 58-year-old female without prior cardiac history is underlying risk factors include family history, hypertension, hyperlipidemia. Patient this morning while preparing to go to work approximately 6 AM developed sudden onset chest pain nausea diaphoresis. Presented to the ER where EKG reflected acute ST elevation/inferior posterior myocardial infarction. Telemetry demonstrated transient short runs of nonsustained ventricular tachycardia IV amiodarone initiated and heart alert begun. [facility] demonstrates single-vessel significant disease involving the left circumflex open with drug-eluting stent. Patient initially nauseated and vomited her first dose of Brilinta. Begun on Plavix and Integrilin Now examined in the intensive care unit substantially improved symptomatically with resolve of all symptoms. No further arrhythmias. Currently without chest pain or discomfort. Access site healing well. She denies prior history of myocardial infarction angina or congestive heart failure. No sense of tachypalpitations syncope or near syncope. No fevers chills unexplained infections though now tested positive for COVID since hospital arrival Allergies Allergy/AdvReac Type Severity Reaction Status Date / Time No Known Allergies Allergy Unverified 07/02/24 09:52 Home Medications Medication Instructions Recorded Confirmed Type lisinopril 20 mg tablet 20 mg PO QAM 07/02/24 07/02/24 History Patient History Medical History HLD (hyperlipidemia) HTN (hypertension) Surgical History Hx of colonoscopy Hx of hysterectomy Hx of appendectomy Hx laparoscopic cholecystectomy Family History Other Diabetes Hypertension Social History Smoking Status: Never smoker Second Hand Exposure: No; Do You Dip or Chew Tobacco: No; Tobacco Cessation Education Requested by Patient: No Hx Alcohol Use: No Hx Substance Use: No Preferred Language: Egyptian Communication Ability: Effective Silviculturist Required: No Beliefs That Will Affect Care: None Current Living Situation: Spouse Current Living Situation Comment: Lives with Other Information That Helps Us Care for You: No Feels Safe at Home: Yes Safety Concerns: Feels Safe At This Time Assistive Devices: None Review of Systems Review of Systems: All systems reviewed & are unremarkable except as noted in HPI & below Physical Exam Constitutional: WD/WN, vitals as above no acute distress Eyes: PERRL, conjunctivae normal, anicteric sclerae ENMT: external ear and nose normal, oropharynx normal Neck: trachea midline, no thyromegaly Respiratory: normal respiratory effort, lungs clear to auscultation Cardiovascular: RRR, no murmur, no edema Gastrointestinal (Abdomen): normal bowel sounds, soft, nontender, no hepatosplenomegaly Musculoskeletal: no cyanosis or clubbing, extremities motor strength 5/5 Neurologic: patellar DTR's 2+ bilat, sensation intact Results & Data Vital Signs (Past 12 Hours) Vital Signs Temp Pulse Pulse Resp BP Pulse Ox O2 Del Method 07/02/24 11:03 68 15 98 07/02/24 10:42 70 16 100 Room Air 07/02/24 10:39 108/82 07/02/24 10:18 66 12 98 07/02/24 10:15 70 20 98 07/02/24 10:06 73 19 99 07/02/24 09:58 36.8 C 69 11 L 97 Room Air 07/02/24 09:50 70 07/02/24 09:45 73 20 99 Room Air 07/02/24 09:42 132/87 07/02/24 09:15 68 14 99 Room Air 07/02/24 09:00 68 14 99 Room Air 07/02/24 07:44 74 18 120/93 100 Room Air 07/02/24 07:41 70 07/02/24 07:40 71 17 100 Room Air 07/02/24 07:40 100 Room Air 07/02/24 07:20 66 20 137/80 100 Room Air O2 Flow Rate 07/02/24 11:03 07/02/24 10:42 07/02/24 10:39 07/02/24 10:18 07/02/24 10:15 07/02/24 10:06 07/02/24 09:58 07/02/24 09:50 07/02/24 09:45 07/02/24 09:42 07/02/24 09:15 07/02/24 09:00 07/02/24 07:44 07/02/24 07:41 07/02/24 07:40 07/02/24 07:40 0 07/02/24 07:20 Laboratory Results Laboratory Results - last 24 hr 07/02/24 07/02/24 07/02/24 07:39 07:44 08:22 WBC 7.15 RBC 4.47 Hgb 12.8 POC Hgb 13.3 Hct 38.3 POC Hct 39 MCV 85.7 MCH 28.6 MCHC 33.4 RDW Std Deviation 40.0 RDW Coeff of Meryl 12.9 Plt Count 243 MPV 12.0 Immature Gran % (Auto) 0.3 Neut % (Auto) 47.6 Lymph % (Auto) 42.0 [place] % (Auto) 6.4 Eos % (Auto) 2.4 Baso % (Auto) 1.3 Neut # (Auto) 3.41 Lymph # (Auto) 3.00 [place] # (Auto) 0.46 Eos # (Auto) 0.17 Baso # (Auto) 0.09 Immature Gran # (Auto) 0.02 PT 11.2 INR 1.0 APTT 24 PTT Ratio 0.9 Activ Coag Time Kaolin 204 H POC Sodium 139 Sodium 139 POC Potassium 3.5 Potassium 3.6 POC Chloride 103 Chloride 104 Carbon Dioxide 25 POC Total CO2 23 L Anion Gap 10 POC Anion Gap 17.0 POC BUN 19 H BUN 17 Creatinine 0.64 POC Creatinine 0.7 Est Cr Clr Drug Dosing 96.5 eGFR 103.66 BUN/Creatinine Ratio 26.6 H Glucose 159 H POC Glucose (other) 161 H Estimat Average Glucose Hemoglobin A1c Calcium 10.0 POC Ioniz Calcium Kelsie 1.20 Magnesium 1.9 Total Bilirubin 0.5 AST 28 ALT 34 Alkaline Phosphatase 83 Total Creatine Kinase 114 Troponin I High Sens 12.5 B-Natriuretic Peptide Total Protein 7.9 Albumin 4.6 Globulin 3.3 Albumin/Globulin Ratio 1.4 Triglycerides Cholesterol LDL Cholesterol, Calc VLDL Cholesterol, Calc HDL Cholesterol Cholesterol/HDL Ratio Lipase 13 TSH 3.714 Nasal Screen MRSA (PCR) SARS-CoV-2 (PCR) POSITIVE A 07/02/24 07/02/24 07/02/24 08:48 09:40 09:56 WBC 7.25 RBC 4.07 L Hgb 12.0 POC Hgb Hct 35.4 L POC Hct MCV 87.0 MCH 29.5 MCHC 33.9 RDW Std Deviation 40.6 RDW Coeff of Merly 12.7 Plt Count 228 MPV 12.0 Immature Gran % (Auto) 0.3 Neut % (Auto) 79.3 Lymph % (Auto) 14.9 [place] % (Auto) 4.6 Eos % (Auto) 0.3 Baso % (Auto) 0.6 Neut # (Auto) 5.76 Lymph # (Auto) 1.08 L [place] # (Auto) 0.33 Eos # (Auto) 0.02 Baso # (Auto) 0.04 Immature Gran # (Auto) 0.02 PT INR APTT PTT Ratio Activ Coag Time Kaolin 216 H POC Sodium Sodium POC Potassium Potassium POC Chloride Chloride Carbon Dioxide POC Total CO2 Anion Gap POC Anion Gap POC BUN BUN Creatinine POC Creatinine Est Cr Clr Drug Dosing eGFR BUN/Creatinine Ratio Glucose POC Glucose (other) Estimat Average Glucose 117 Hemoglobin A1c 5.7 H Calcium POC Ioniz Calcium Kelsie Magnesium Total Bilirubin AST ALT Alkaline Phosphatase Total Creatine Kinase Troponin I High Sens B-Natriuretic Peptide 23 Total Protein Albumin Globulin Albumin/Globulin Ratio Triglycerides 64 Cholesterol 273 H LDL Cholesterol, Calc 205 VLDL Cholesterol, Calc 13 HDL Cholesterol 55 Cholesterol/HDL Ratio 5.0 Lipase TSH Nasal Screen MRSA (PCR) Pending SARS-CoV-2 (PCR)
--- NOTE | 2024-07-02 13:32 | Cardiac Catheterization ---
[facility] Data: Server Programmer Cardiac Status Clinical evaluation leading to the procedure CAD Presenation: STEMI Anginal Classification: CCS IV Heart Failure: No Cardiogenic Shock within 24 Hours: No Cardiac Arrest within 24 Hours: No Imaging Studies Past 6 Months: No Stress Studies Past 6 Months: No STEMI OR Non-STEMI Symptom Onset Date: 07/02/24 Symptom Onset Time: 06:30 Thrombolytics: No Coronary Anatomy Dominant: Right Left Main (% Stenosis): Normal LAD (% Stenosis): Normal D1 (% Stenosis): Normal Circumflex (% Stenosis): Normal OM1 (% Stenosis): Proximal (99 to 100% with thrombus) RCA (% Stenosis): Normal R PDA (% Stenosis): Normal R PL1 (% Stenosis): Normal Diagnostic Physicians Name: Shade Davidson MD, PhD Closure Device Percutaneous Entry Location: Radial Closure Device: Radial Band Recommendations: Medical Therapy and/or Counseling and PCI without planned CABG PCI Indication: PCI for STEMI - Unstable Lesion Segment Name: Circumflex OM Culprit Artery: Yes Stenosis Prior to Rx (%): 99 to 100% Chronic Total Occlusion: No Pre-Procedure CELINA Flow: 0 Previously Treated Lesion: No Lesion Complexity: High/C Lesion Length (mm): 12 mm distally, 30 mm proximal and mid Thrombus Present: Yes Bifurcation Lesion: Yes Guidewire Across Lesion: Yes Intraprocedure Events Significant Disection: No Perforation: No Cardiac Cath Procedure Full Procedure Date July 02, 2024 Pre-Procedure Diagnosis Pre-Procedure Diagnosis: STEMI AUC Score AUC Score: 09 Post-Procedure Diagnosis Post-Procedure Diagnosis: Severe CAD and Successful PCI Procedure(s) Performed Procedure(s) Performed: Coronary Angiography and Drug Eluting Stent Automobile Drivers Shade Davidson MD, PhD Estimated Blood Loss Estimated Blood Loss: 5 cc Medication(s) Medication(s): Fentanyl, Heparin, Integrilin, Lidocaine 1%, Nicardipine, Nitroglycerin and Versed Medication(s): Amiodarone Plavix 600 mg p.o. Summary of Findings Brief description: Patient was brought to the cardiac catheterization suite where she was shaved and prepped in a sterile fashion. Sedated using IV Versed and fentanyl. Soft tissues of the right wrist were anesthetized using 2 mL of 1% Xylocaine. The right radial artery was accessed with modified Seldinger technique and a 6 Swiss radial artery glide sheath was placed. All catheters were advanced and exchanged over a 0.035 J-tip wire. Patient was provided anticoagulation with IV heparin (ACT checked intermittently and additional heparin provided as needed) and antispasmodics including nicardipine and nitroglycerin. Note: Patient also had significant ventricular arrhythmia and was provided amiodarone drip after having received a bolus in the emergency department. Left coronary angiography was performed in orthogonal views with a 5 Swiss [place] 4 diagnostic catheter. Right coronary angiography was performed in orthogonal views with a 5 Swiss [place] 4 diagnostic catheter. Diagnostic catheters were removed. Decision was made to proceed directly to PCI. 6 Swiss EBU 3.0 guide catheter was advanced over the J-wire and used to engage the left main coronary artery. A BMW reversal guidewire was advanced and under fluoroscopic guidance was eventu ally positioned distally in the circumflex/OM. Lesion was predilated using a 2.0 x 12 mm mini trek balloon inflated at 8 kandice. Tie Maker angiography was performed. The wire was then redirected out of the OM and positioned distally. Additional predilatation was performed using the 2.0 x 12 mm mini trek at 8 kandice. The balloon was then removed. A 2.0 x 15 [place] drug-eluting stent was advanced and positioned over the most distal portion of the vessel. Here it was deployed at 12 kandice. Stent balloon was removed. A 2.25 x 23 Xience drug-eluting stent was then advanced over the guidewire and positioned across the long mid portion of the lesion. It was deployed at 9 kandice. Finally, a 2.25 x 12 mm [place] drug-eluting stent was then advanced and positioned over the most proximal portion of the lesion with its distal edge within the proximal edge of the previous stent. Stent was deployed initially at 13 kandice with a second inflation up to 14 kandice in an overlap fashion with the prior stent. Stent balloon was then removed. Tie Maker angiography was performed. Final angiography was then performed in orthogonal views and the guidewire was removed. Guide catheter was removed over the J-wire. Radial artery sheath was removed. Hemostasis was obtained using the TR band. Patient remained hemodynamically stable and was at this point asymptomatic. She received Integrilin as a double bolus administration followed by drip and then 600 mg Plavix p.o. as a loading dose. Patient was then transferred to the ICU for further workup and management. This ended the case. Coronary angiography findings: LMT-this is large caliber and bifurcates into the LAD and circumflex. No disease. WTY-bldmb-orzathh and transapical. Gives a large septal branch and a large branching first diagonal. There is no angiographically evident disease in the LAD or its branches. LCx-this is large caliber and nondominant. Travels in the AV groove and becomes a large branching obtuse marginal. Proximally there is 99 to 100% thrombotic lesion occurring at the first major branch. CELINA 0 flow. ONG-hkigp-wcgomml and dominant vessel. Bifurcates distally into the PDA and a large branching posterolateral. The RCA and its branches have no disease. PCI-original 99 to 100% stenosis is reduced to 0% stenosis post PCI with implantation of 2 overlapped drug-eluting stents in the proximal to mid vessel and a single small caliber drug-eluting stent distally. CELINA-3 flow post PCI No evidence of dissection or perforation post PCI Summary: 1. Severe occlusive coronary disease of the large OM branch of the circumflex is the culprit for acute TX. 2. Successful PCI with 2 overlapped drug-eluting stents in the proximal to mid vessel as well as a single small caliber distal vessel stent. 3. Dual antiplatelet therapy using aspirin 325 mg daily, Plavix 75 mg daily will be ongoing for 1 to 2 years. In the short-term, Integrilin drip for 12 hours until the loading dose of Plavix is biologically active. 4. Guideline directed medical therapy for secondary prevention of coronary disease. Primary consumer electronic retail specialist to determine. Hemodynamics Rest Ao:: 102/68 mmHg Final Ao: 104/57 mmHg LV: Not performed Recommendations Recommendations: Medical Therapy and/or Counseling and PCI without planned CABG Radiation Exposure (mGy) 1090 mGy, fluoroscopy time 10.2 minutes Contrast (mls) 160 mL Anesthesia 50 mcg fentanyl, 1 mg Versed IV start time 812, end time 844 Procedural Complication(s) None Disposition ICU I attest to the content of the Intraoperative Record and any orders documented therein. Any exceptions are noted below. [facility] [place] Procedure Codes Cardiac Catheterization Procedure 1: Cardiovascular Cath Procedures: 99288 Coronaries Moderate Sedation Procedure 1: Sedation/Anesthesia: 93141 Mod Sedation by the same physician;Init15 Min Child Age 5 & Up (Initial 15 minutes, start time 0812) Procedure 2: Sedation/Anesthesia: 02435 Mod Sedation by the same physician; Ea [id number] Minutes (Additional 17 minutes, end time 0844) Stenting Procedure 1: Cardiovascular Stent Procedures: 78885 Perc transluminal revascularization of acute sub/total occl, aMI (LCx) PG Care Time/CCT Total # of Minutes Spent Total Time Spent with Patient: Total time spent is greater than 50% in coordination of care (as documented) at patient's floor/unit and/or counseling patient:
[2024-07-02] MEDS ORDERED: AMIODARONE / D5W 360 MG/200 ML BAG IV SCH (15:45)
[2024-07-02] MEDS: [UNRECOGNIZED DRUG - REMARK] ONE (20:41)
[2024-07-03 05:07] LABS: Basophils # (auto) 0.05 K/uL (0.00-0.20); Basophils % (auto) 0.7 %; Eosinophils # (auto) 0.07 K/uL (0.00-0.50); Eosinophils % (auto) 0.9 %; Hematocrit (blood only) 37.2 % (37.0-47.0); Hemoglobin 12.5 g/dl (12.0-16.0); Immature Granulocytes # (auto) 0.02 K/uL (0.01-0.20); Immature Granulocytes % (auto) 0.3 %; Lymphocytes # (auto) 2.01 K/uL (1.20-3.40); Lymphocytes % (auto) 26.2 %; Mean Corpuscular Hemoglobin 28.6 pg (25.0-34.0); Mean Corpuscular Hgb Conc 33.6 g/dL (32.0-36.0); Mean Corpuscular Volume 85.1 fL (80.0-100.0); Monocytes # (auto) 0.78 K/uL (0.11-0.59); Monocytes % (auto) 10.2 %; Neutrophils # (auto) 4.75 K/uL (1.40-6.50); Neutrophils % (auto) 61.7 %; Platelet Count 193 K/uL (130-400); RDW Coefficient of Variation 12.9 % (11.5-14.5); RDW Standard Deviation 40.4 fL (36.4-46.3); Red Blood Count 4.37 M/uL (4.20-5.40); White Blood Count 7.68 K/ul (4.8-10.8)
[2024-07-03 05:22] LABS: BUN Creatinine Ratio 21.2 (10-20); Calcium 9.6 mg/dl (8.6-10.3); Magnesium 2.1 mg/dl (1.7-2.4); Potassium 4.4 mmol/L (3.5-5.1)
[2024-07-03 06:22] LABS: Troponin I High Sensitivity 17647.7 pg/ml (0-14)
[2024-07-03 07:47] VITALS: RESP 13; O2SAT 97
[2024-07-03 07:48] VITALS: TEMP 98.4
[2024-07-03] MEDS: ASPIRIN 325 MG ECTAB PO SCH (07:48)
[2024-07-03] MEDS: ROSUVASTATIN CALCIUM 20 MG TAB PO SCH (07:48)
[2024-07-03] MEDS: CLOPIDOGREL BISULFATE 75 MG TAB PO SCH (07:48)
--- NOTE | 2024-07-03 08:40 | Hospitalist Progress Note ---
Date of Service July 03, 2024 Assessment & Plan (1) ST elevation (STEMI) myocardial infarction: (2) CAD (coronary artery disease): (3) HTN (hypertension): (4) SARS-CoV-2 positive: Plan Acute NSTEMI status post PCI of large OM branch of circumflex Patient presented with chest discomfort and diaphoresis. EKG on admission showed inferior posterior acute NSTEMI Heart alert was called; patient underwent placement of 3 stents in left circumflex Transient nonsustained ventricular tachycardia in ED Echo shows EF of 50 to 55%; hypokinesis and in some segment dyskinesis of mid to distal posterior lateral wall. Continue on aspirin, Plavix, lisinopril and metoprolol Continue on high-dose rosuvastatin Will need follow-up with PCP and cardiology as outpatient. COVID-19 infection Patient is asymptomatic; saturating well on room air Monitor Hypertensioncurrently on lisinopril, metoprolol. Full code DVT prophylaxis Lovenox Time spent evaluating patient, direct bedside care, chart review, placing orders, interpretation of diagnostic studies, discussion with consultants, patient, and family members, as well as other required patient management activities is 50 minutes Please note the above document was generated using voice recognition software. It may contain grammatical, syntax or spelling errors. Any formal questions or concerns about the content, text or information contained within the body of this dictation should be directly addressed to the provider for clarification Admission and Anticipated Discharge Date Admission Date: July 02, 2024 Subjective Patient seen and examined at bedside. Comfortable; not in distress. Denies fever, chills, chest pain, shortness of breath, abdominal pain or urinary symptoms. No significant overnight events Review of Systems 2 Review of Systems: All systems reviewed & are unremarkable except as noted in Subjective Physical Exam Physical Exam: Constitutional: WD/WN, vitals as above, NAD, sitting up in bed, pleasant, conversing easily Respiratory: normal respiratory effort, lungs clear to auscultation, no wheeze, rales, rhonchi. Normal insp/exp effort, no accessory muscle use Cardiovascular: RRR, no murmur, no edema Vessels: no JVD or carotid bruit Chest: normal inspection of chest Abdomen: normal bowel sounds, soft, nontender, no hepatosplenomegaly Musculoskeletal: no cyanosis or clubbing, extremities motor strength 5/5 Skin: no rashes, warm and dry normal turgor Neurologic: PERRL, EOMI, accommodation nl, no face palsy, no dysarthria CN's II- XI intact bilaterally and moves all extremities Psychiatric: A+Ox3, euthymic affect Results & Data Results & Data Vital Signs (Past 12 Hours) Vital Signs Temp Pulse Resp BP Pulse Ox Pulse Ox O2 Del Method 07/03/24 07:47 36.9 C 07/03/24 07:38 114/83 07/03/24 07:38 114/83 07/03/24 07:38 114/83 07/03/24 07:38 114/83 07/03/24 07:00 59 L 13 97 Room Air 07/03/24 06:41 114/72 07/03/24 06:33 66 14 96 07/03/24 06:00 68 18 94 07/03/24 05:06 70 16 95 07/03/24 04:38 111/69 07/03/24 04:38 111/69 07/03/24 04:38 111/69 07/03/24 04:27 65 15 96 07/03/24 04:06 67 18 95 07/03/24 04:00 36.8 C 07/03/24 04:00 96 07/03/24 03:18 63 14 95 07/03/24 02:06 62 18 117/53 L 95 07/03/24 01:00 75 25 H 98 07/03/24 00:38 103/59 L 07/03/24 00:27 62 15 94 07/03/24 00:21 61 16 95 07/03/24 00:00 96 07/03/24 00:00 36.9 C 07/03/24 00:00 76 07/02/24 23:38 121/71 07/02/24 23:36 59 L 16 96 07/02/24 23:06 61 16 96 07/02/24 22:00 81 19 07/02/24 21:00 62 18 97 07/02/24 20:38 138/73 07/02/24 20:38 138/73 O2 Del Method 07/03/24 07:47 07/03/24 07:38 07/03/24 07:38 07/03/24 07:38 07/03/24 07:38 07/03/24 07:00 07/03/24 06:41 07/03/24 06:33 07/03/24 06:00 07/03/24 05:06 07/03/24 04:38 07/03/24 04:38 07/03/24 04:38 07/03/24 04:27 07/03/24 04:06 07/03/24 04:00 07/03/24 04:00 Room Air 07/03/24 03:18 07/03/24 02:06 07/03/24 01:00 07/03/24 00:38 07/03/24 00:27 07/03/24 00:21 07/03/24 00:00 Room Air 07/03/24 00:00 07/03/24 00:00 07/02/24 23:38 07/02/24 23:36 07/02/24 23:06 07/02/24 22:00 07/02/24 21:00 07/02/24 20:38 07/02/24 20:38 (1) ST elevation (STEMI) myocardial infarction Involved coronary artery: left circumflex coronary artery Qualified Code(s): I21.21 - ST elevation (STEMI) myocardial infarction involving left circumflex coronary artery (2) CAD (coronary artery disease) Coronary Disease-Associated Artery/Lesion type: [place] artery [place] vs. transplanted heart: [place] heart Associated angina: without angina Qualified Code(s): I25.10 - Atherosclerotic heart disease of [place] coronary artery without angina pectoris
--- NOTE | 2024-07-03 08:59 | Critical Care Progress Note ---
Date of Service July 03, 2024 Assessment & Plan (1) ST elevation (STEMI) myocardial infarction: Plan: Aspirin, beta-mitch, YONIS inhibitor, finishing Integrilin infusion, statin -Echocardiogram reviewed -Stable for downgrade out of ICU (2) SARS-CoV-2 positive: Plan: No hypoxia, this may be an incidental finding, isolation until discharge. (3) CAD (coronary artery disease): Admission and Anticipated Discharge Date Admission Date: July 02, 2024 Subjective No overnight events, no chest pain no shortness of breath Physical Exam Physical Exam: General: Alert. nontoxic. Skin: Warm, dry, Head: Atraumatic Ears, nose, mouth and throat: airway patent Cardiovascular: Normal peripheral perfusion Respiratory: no respiratory distress Gastrointestinal: Non distended Musculoskeletal: No deformity Results & Data Results & Data Vital Signs (Past 12 Hours) Vital Signs Temp Pulse Resp BP Pulse Ox Pulse Ox O2 Del Method 07/03/24 07:47 36.9 C 07/03/24 07:38 114/83 07/03/24 07:38 114/83 07/03/24 07:38 114/83 07/03/24 07:38 114/83 07/03/24 07:00 59 L 13 97 Room Air 07/03/24 06:41 114/72 07/03/24 06:33 66 14 96 07/03/24 06:00 68 18 94 07/03/24 05:06 70 16 95 07/03/24 04:38 111/69 07/03/24 04:38 111/69 07/03/24 04:38 111/69 07/03/24 04:27 65 15 96 07/03/24 04:06 67 18 95 07/03/24 04:00 36.8 C 07/03/24 04:00 96 07/03/24 03:18 63 14 95 07/03/24 02:06 62 18 117/53 L 95 07/03/24 01:00 75 25 H 98 07/03/24 00:38 103/59 L 07/03/24 00:27 62 15 94 07/03/24 00:21 61 16 95 07/03/24 00:00 96 07/03/24 00:00 36.9 C 07/03/24 00:00 76 07/02/24 23:38 121/71 07/02/24 23:36 59 L 16 96 07/02/24 23:06 61 16 96 07/02/24 22:00 81 19 07/02/24 21:00 62 18 97 O2 Del Method 07/03/24 07:47 07/03/24 07:38 07/03/24 07:38 07/03/24 07:38 07/03/24 07:38 07/03/24 07:00 07/03/24 06:41 07/03/24 06:33 07/03/24 06:00 07/03/24 05:06 07/03/24 04:38 07/03/24 04:38 07/03/24 04:38 07/03/24 04:27 07/03/24 04:06 07/03/24 04:00 07/03/24 04:00 Room Air 07/03/24 03:18 07/03/24 02:06 07/03/24 01:00 07/03/24 00:38 07/03/24 00:27 07/03/24 00:21 07/03/24 00:00 Room Air 07/03/24 00:00 07/03/24 00:00 07/02/24 23:38 07/02/24 23:36 07/02/24 23:06 07/02/24 22:00 07/02/24 21:00 Critical Care Results & Data Vital Signs (Past 12 Hours) Vital Signs Temp Pulse Resp BP Pulse Ox Pulse Ox O2 Del Method 07/03/24 07:47 36.9 C 07/03/24 07:38 114/83 07/03/24 07:38 114/83 07/03/24 07:38 114/83 07/03/24 07:38 114/83 07/03/24 07:00 59 L 13 97 Room Air 07/03/24 06:41 114/72 07/03/24 06:33 66 14 96 07/03/24 06:00 68 18 94 07/03/24 05:06 70 16 95 07/03/24 04:38 111/69 07/03/24 04:38 111/69 07/03/24 04:38 111/69 07/03/24 04:27 65 15 96 07/03/24 04:06 67 18 95 07/03/24 04:00 36.8 C 07/03/24 04:00 96 07/03/24 03:18 63 14 95 07/03/24 02:06 62 18 117/53 L 95 07/03/24 01:00 75 25 H 98 07/03/24 00:38 103/59 L 07/03/24 00:27 62 15 94 07/03/24 00:21 61 16 95 07/03/24 00:00 96 07/03/24 00:00 36.9 C 07/03/24 00:00 76 07/02/24 23:38 121/71 07/02/24 23:36 59 L 16 96 07/02/24 23:06 61 16 96 07/02/24 22:00 81 19 07/02/24 21:00 62 18 97 O2 Del Method 07/03/24 07:47 07/03/24 07:38 07/03/24 07:38 07/03/24 07:38 07/03/24 07:38 07/03/24 07:00 07/03/24 06:41 07/03/24 06:33 07/03/24 06:00 07/03/24 05:06 07/03/24 04:38 07/03/24 04:38 07/03/24 04:38 07/03/24 04:27 07/03/24 04:06 07/03/24 04:00 07/03/24 04:00 Room Air 07/03/24 03:18 07/03/24 02:06 07/03/24 01:00 07/03/24 00:38 07/03/24 00:27 07/03/24 00:21 07/03/24 00:00 Room Air 07/03/24 00:00 07/03/24 00:00 07/02/24 23:38 07/02/24 23:36 07/02/24 23:06 07/02/24 22:00 07/02/24 21:00 Lab & Micro Results (Past 24 Hours) RBC 4.37 M/uL (4.20-5.40) 07/03/24 WBC 7.68 K/ul (4.8-10.8) 07/03/24 Hgb 12.5 g/dl (12.0-16.0) 07/03/24 Hct 37.2 % (37.0-47.0) 07/03/24 MCV 85.1 fL (80.0-100.0) 07/03/24 MCH 28.6 pg (25.0-34.0) 07/03/24 MCHC 33.6 g/dL (32.0-36.0) 07/03/24 RDW Standard Deviation 40.4 fL (36.4-46.3) 07/03/24 RDW Coefficient of Variation 12.9 % (11.5-14.5) 07/03/24 Plt Count 193 K/uL (130-400) 07/03/24 MPV 12.0 fL (9.4-12.4) 07/03/24 Neutrophils (%) (Auto) 61.7 % 07/03/24 Lymphocytes (%) (Auto) 26.2 % 07/03/24 Monocytes # (Auto) 0.78 K/uL (0.11-0.59) H 07/03/24 Eosinophils # (Auto) 0.07 K/uL (0.00-0.50) 07/03/24 Immature Granulocyte % (Auto) 0.3 % 07/03/24 Neutrophils # (Auto) 4.75 K/uL (1.40-6.50) 07/03/24 Lymphocytes # (Auto) 2.01 K/uL (1.20-3.40) 07/03/24 Monocytes # (Auto) 0.78 K/uL (0.11-0.59) H 07/03/24 Eosinophils # (Auto) 0.07 K/uL (0.00-0.50) 07/03/24 Basophils # (Auto) 0.05 K/uL (0.00-0.20) 07/03/24 Immature Granulocyte # (Auto) 0.02 K/uL (0.01-0.20) 4 Na 138 mmol/L (136-145) 07/03/24 K 4.4 mmol/L (3.5-5.1) 07/03/24 Cl 107 mmol/L (98-107) 07/03/24 CO2 24 mmol/L (21-32) 07/03/24 Anion Gap 7 (3-11) 07/03/24 BUN 14 mg/dl (6-23) 07/03/24 Creatinine 0.66 mg/dl (0.6-1.2) 07/03/24 BUN/Creatinine Ratio 21.2 (10-20) H 07/03/24 Glu 99 mg/dl (70-99(Fasting)) 07/03/24 Ca 9.6 mg/dl (8.6-10.3) 07/03/24 Mg 2.1 mg/dl (1.7-2.4) 07/03/24 04:35 Calcium Level 9.6 mg/dl (8.6-10.3) 07/03/24 04:35 I & O Totals 24 Hours 07/02/24 07/03/24 07/04/24 06:59 06:59 06:59 Intake Total 1266.873 / 1266.873 Balance 1266.873 / 1266.873 Cumulative 07/02/24 07:13 thru 07/03/24 06:13 Intake Total 1266.873 Balance 1266.873 RT Ventilator Mngmt (Last Documented) Ventilator Ordered Settings Respiratory Rate 13 07/03/24 07:00 Ventilator - PT Measurements Respiratory Rate 13 Coding Level of Care Code 97843 SUB INP/OBS CARE 08/04MIN Diagnoses ST elevation (STEMI) myocardial infarction I21.21 Involved coronary artery: left circumflex coronary artery SARS-CoV-2 positive U07.1 Coronary artery disease involving [place] coronary artery of [place] heart without angina pectoris I25.10 Coronary Disease-Associated Artery/Lesion type: [place] artery [place] vs. transplanted heart: [place] heart Associated angina: without angina (1) ST elevation (STEMI) myocardial infarction Involved coronary artery: left circumflex coronary artery Qualified Code(s): I21.21 - ST elevation (STEMI) myocardial infarction involving left circumflex coronary artery (3) CAD (coronary artery disease) Coronary Disease-Associated Artery/Lesion type: [place] artery [place] vs. transplanted heart: [place] heart Associated angina: without angina Qualified Code(s): I25.10 - Atherosclerotic heart disease of [place] coronary artery without angina pectoris
[2024-07-03 09:08] LABS: Basophils # (auto) 0.04 K/uL (0.00-0.20); Basophils % (auto) 0.6 %; Eosinophils # (auto) 0.05 K/uL (0.00-0.50); Eosinophils % (auto) 0.7 %; Immature Granulocytes # (auto) 0.02 K/uL (0.01-0.20); Immature Granulocytes % (auto) 0.3 %; Lymphocytes # (auto) 1.79 K/uL (1.20-3.40); Lymphocytes % (auto) 25.1 %; Mean Corpuscular Hemoglobin 29.5 pg (25.0-34.0); Mean Corpuscular Hgb Conc 34.2 g/dL (32.0-36.0); Mean Corpuscular Volume 86.2 fL (80.0-100.0); Mean Platelet Volume 12.1 fL (9.4-12.4); Monocytes # (auto) 0.49 K/uL (0.11-0.59); Monocytes % (auto) 6.9 %; Neutrophils # (auto) 4.74 K/uL (1.40-6.50); Neutrophils % (auto) 66.4 %; Platelet Count 214 K/uL (130-400); Red Blood Count 4.41 M/uL (4.20-5.40); White Blood Count 7.13 K/ul (4.8-10.8)
--- NOTE | 2024-07-03 10:38 | Cardiology Progress Note ---
Date of Service July 03, 2024 Assessment & Plan (1) CAD (coronary artery disease): (2) ST elevation (STEMI) myocardial infarction: (3) SARS-CoV-2 positive: (4) HTN (hypertension): (5) HLD (hyperlipidemia): Plan 58-year-old female with cardiovascular risk factors of family history, hypertension, hyperlipidemia untreated presented with acute onset chest pain at 6:00 this morning with EKG criteria for inferior posterior acute ST elevation myocardial infarction. Presentation notable for transient nonsustained ventricular tachycardia. Patient taken to the [facility] as a heart alert promptly and underwent coronary intervention for single-vessel disease left circumflex. After initial symptoms patient has stabilized with resolve of all chest pain with normalization of EKG. Recommendations: 1. Acute ST elevation myocardial infarction with successful revascularization with drug-eluting stent. Continue dual antiplatelet therapy with aspirin and Plavix. Patient to complete Integrilin infusion Continue reduced dose lisinopril 2. Nonsustained ventricular tachycardia ischemia mediated. Will discontinue IV amiodarone. Begin oral beta-mitch. 3. Hyperlipidemia with acute coronary disease will place on high-dose statin 4. COVID-positive without acute respiratory symptoms Cardiology will follow, continue telemetry 07/03/2024 Findings as noted above. Non-ST segment elevation myocardial infarction with essentially single-vessel disease status post coronary intervention circumflex obtuse marginal with successful result. Significant rise in troponin however wall motion preserved on echocardiogram and EKG without acute Q waves. Recommendations as noted. Would change metoprolol to tartrate to metoprolol succinate 25 mg once per day given relative bradycardia. Continue dual antiplatelet therapy with aspirin 81 mg/day clopidogrel 75 mg p.o. daily high- dose statin with rosuvastatin 40 mg p.o. daily Patient stable for discharge today COVID precautions Follow-up with cardiology 2 to 3 weeks time Cardiac rehab referral Admission and Anticipated Discharge Date Admission Date: July 02, 2024 Subjective Patient seen and personally examined. No complaints overnight. Ambulatory in room without chest pain or shortness of breath. No arrhythmias. No dizziness or lightheadedness. No respiratory complaints fevers or chills. Review of Systems Review of Systems: All systems reviewed & are unremarkable except as noted in Subjective Physical Exam Constitutional: WD/WN, vitals as above no acute distress Eyes: PERRL, conjunctivae normal, anicteric sclerae ENMT: external ear and nose normal, oropharynx normal Neck: trachea midline, no thyromegaly Respiratory: normal respiratory effort, lungs clear to auscultation Cardiovascular: RRR, no murmur, no edema Vessels: radial pulses present; no JVD Extremities: no edema Gastrointestinal (Abdomen): normal bowel sounds, soft, nontender, no hepatosplenomegaly Musculoskeletal: no cyanosis or clubbing, extremities motor strength 5/5 Neurologic: patellar DTR's 2+ bilat, sensation intact Results & Data Vital Signs (Past 12 Hours) Vital Signs Temp Pulse Resp BP Pulse Ox Pulse Ox O2 Del Method 07/03/24 08:00 07/03/24 07:47 36.9 C 07/03/24 07:38 114/83 07/03/24 07:38 114/83 07/03/24 07:38 114/83 07/03/24 07:38 114/83 07/03/24 07:00 59 L 13 97 Room Air 07/03/24 06:56 56 L 07/03/24 06:41 114/72 07/03/24 06:33 66 14 96 07/03/24 06:00 68 18 94 07/03/24 05:06 70 16 95 07/03/24 04:38 111/69 07/03/24 04:38 111/69 07/03/24 04:38 111/69 07/03/24 04:27 65 15 96 07/03/24 04:06 67 18 95 07/03/24 04:00 36.8 C 07/03/24 04:00 96 07/03/24 03:18 63 14 95 07/03/24 02:06 62 18 117/53 L 95 07/03/24 01:00 75 25 H 98 07/03/24 00:38 103/59 L 07/03/24 00:27 62 15 94 07/03/24 00:21 61 16 95 07/03/24 00:00 96 07/03/24 00:00 36.9 C 07/03/24 00:00 76 07/02/24 23:38 121/71 07/02/24 23:36 59 L 16 96 07/02/24 23:06 61 16 96 O2 Del Method 07/03/24 08:00 Room Air 07/03/24 07:47 07/03/24 07:38 07/03/24 07:38 07/03/24 07:38 07/03/24 07:38 07/03/24 07:00 07/03/24 06:56 07/03/24 06:41 07/03/24 06:33 07/03/24 06:00 07/03/24 05:06 07/03/24 04:38 07/03/24 04:38 07/03/24 04:38 07/03/24 04:27 07/03/24 04:06 07/03/24 04:00 07/03/24 04:00 Room Air 07/03/24 03:18 07/03/24 02:06 07/03/24 01:00 07/03/24 00:38 07/03/24 00:27 07/03/24 00:21 07/03/24 00:00 Room Air 07/03/24 00:00 07/03/24 00:00 07/02/24 23:38 07/02/24 23:36 07/02/24 23:06 Laboratory Results Laboratory Results - last 24 hr 07/02/24 07/02/24 07/02/24 09:40 09:56 11:45 WBC RBC Hgb Hct MCV MCH MCHC RDW Std Deviation RDW Coeff of Meryl Plt Count MPV Immature Gran % (Auto) Neut % (Auto) Lymph % (Auto) Johnston % (Auto) Eos % (Auto) Baso % (Auto) Neut # (Auto) Lymph # (Auto) [place] # (Auto) Eos # (Auto) Baso # (Auto) Immature Gran # (Auto) Sodium Potassium Chloride Carbon Dioxide Anion Gap BUN Creatinine Est Cr Clr Drug Dosing eGFR BUN/Creatinine Ratio Glucose POC Glucose 158 H Estimat Average Glucose 117 Hemoglobin A1c 5.7 H Calcium Magnesium Troponin I High Sens B-Natriuretic Peptide 23 Triglycerides 64 Cholesterol 273 H LDL Cholesterol, Calc 205 VLDL Cholesterol, Calc 13 HDL Cholesterol 55 Cholesterol/HDL Ratio 5.0 Nasal Screen MRSA (PCR) Negative 07/02/24 07/02/24 07/02/24 17:37 18:14 23:11 WBC RBC Hgb Hct MCV MCH MCHC RDW Std Deviation RDW Coeff of Meryl Plt Count MPV Immature Gran % (Auto) Neut % (Auto) Lymph % (Auto) [place] % (Auto) Eos % (Auto) Baso % (Auto) Neut # (Auto) Lymph # (Auto) [place] # (Auto) Eos # (Auto) Baso # (Auto) Immature Gran # (Auto) Sodium Potassium Chloride Carbon Dioxide Anion Gap BUN Creatinine Est Cr Clr Drug Dosing eGFR BUN/Creatinine Ratio Glucose POC Glucose 122 H Estimat Average Glucose Hemoglobin A1c Calcium Magnesium Troponin I High Sens 52345.0 H* D 94043.3 H* D B-Natriuretic Peptide Triglycerides Cholesterol LDL Cholesterol, Calc VLDL Cholesterol, Calc HDL Cholesterol Cholesterol/HDL Ratio Nasal Screen MRSA (PCR) 07/03/24 07/03/24 04:35 08:35 WBC 7.68 7.13 RBC 4.37 4.41 Hgb 12.5 13.0 Hct 37.2 38.0 MCV 85.1 86.2 MCH 28.6 29.5 MCHC 33.6 34.2 RDW Std Deviation 40.4 41.0 RDW Coeff of Meryl 12.9 13.0 Plt Count 193 214 MPV 12.0 12.1 Immature Gran % (Auto) 0.3 0.3 Neut % (Auto) 61.7 66.4 Lymph % (Auto) 26.2 25.1 Johnston % (Auto) 10.2 6.9 Eos % (Auto) 0.9 0.7 Baso % (Auto) 0.7 0.6 Neut # (Auto) 4.75 4.74 Lymph # (Auto) 2.01 1.79 Johnston # (Auto) 0.78 H 0.49 Eos # (Auto) 0.07 0.05 Baso # (Auto) 0.05 0.04 Immature Gran # (Auto) 0.02 0.02 Sodium 138 Potassium 4.4 D Chloride 107 Carbon Dioxide 24 Anion Gap 7 BUN 14 Creatinine 0.66 Est Cr Clr Drug Dosing 94.0 eGFR 102.89 BUN/Creatinine Ratio 21.2 H Glucose 99 POC Glucose Estimat Average Glucose Hemoglobin A1c Calcium 9.6 Magnesium 2.1 Troponin I High Sens 78331.7 H* D B-Natriuretic Peptide Triglycerides Cholesterol LDL Cholesterol, Calc VLDL Cholesterol, Calc HDL Cholesterol Cholesterol/HDL Ratio Nasal Screen MRSA (PCR) (1) CAD (coronary artery disease) Associated angina: without angina Coronary Disease-Associated Artery/Lesion type: [place] artery [place] vs. transplanted heart: [place] heart Qualified Code(s): I25.10 - Atherosclerotic heart disease of [place] coronary artery without angina pectoris (2) ST elevation (STEMI) myocardial infarction Involved coronary artery: left circumflex coronary artery Qualified Code(s): I21.21 - ST elevation (STEMI) myocardial infarction involving left circumflex coronary artery
[2024-07-03 11:17] VITALS: PULSE 69
--- NOTE | 2024-07-03 12:50 | Discharge Summary ---
Date of Service July 03, 2024 Admission HPI Per Admitting Provider This is a 58 yr old F who has a known PMH of HTN who presented to ED 2/2 chest discomfort and bilateral arm pain. She states when she woke up this morning she felt a discomfort on her chest, "like I had to burp." It was associated with bilateral arm pain and diaphoresis. "I felt as if I had low sugar." She denied any lightheaded, dizziness, SOB, cough, hemoptysis, palpitations or nausea. Upon arrival to the ED she did have an episode of vomiting. In ED she had ECG changes concerning for developing inferior NM with changes in Leads III, AVF. A heart alert was called. Per ICU report pt had a few runs of Vtach in the ED; therefore she was started on Amiodarone gtt. Pt was sent to [facility] cath lab where she received 3 KADEN to circumflex. Final report from Dr. Neri is still pending. Pt is in bed with and son at bedside. She is tearful. She reports continued bilateral arm pain, but it is much less severe. She denies Chest pain, sob, dizziness, lightheaded, cough, n or v. She denies hx of similar sx in the past. She denies tobacco use or drug use. She does socially drink alcohol but not on a regular basis. She has a FH of CAD in grandparents and Father had CABG in his 70s. Previously followed with Dr. Nelson, but reports she currently doesn't have a PCP. She has been compliant with her daily lisinopril. Admission Exam Per Admitting Provider Constitutional: WD/WN, vitals as above, NAD, sitting up in bed, pleasant but tearful, conversing easily Head: Normocephalic, Atraumatic Eyes: PERRL, conjunctivae normal, anicteric sclerae ENMT: external ear and nose normal, oropharynx normal Neck: trachea midline, no thyromegaly normal visual inspection Respiratory: normal respiratory effort, lungs clear to auscultation, no wheeze, rales, rhonchi. Normal insp/exp effort, no accessory muscle use Cardiovascular: RRR, no murmur, no edema, + R radial band intact, R hand cool but good cap refill, denies pain/numbness Vessels: no JVD or carotid bruit Chest: normal inspection of chest Abdomen: normal bowel sounds, soft, nontender, no hepatosplenomegaly Musculoskeletal: no cyanosis or clubbing, arom x 4 Skin: no rashes, warm and dry normal turgor Neurologic: PERRL, EOMI, accommodation nl, no face palsy, no dysarthria CN's II-XI intact bilaterally and moves all extremities Psychiatric: A+Ox3, euthymic affect Lymphatic: no cervical or axillary lymphadenopathy : deferred Principal Diagnosis STEMI status post PCI of left circumflex Discharge Exam Constitutional: WD/WN, vitals as above, NAD, sitting up in bed, pleasant, conversing easily Respiratory: normal respiratory effort, lungs clear to auscultation, no wheeze, rales, rhonchi. Normal insp/exp effort, no accessory muscle use Cardiovascular: RRR, no murmur, no edema Vessels: no JVD or carotid bruit Chest: normal inspection of chest Abdomen: normal bowel sounds, soft, nontender, no hepatosplenomegaly Musculoskeletal: no cyanosis or clubbing, extremities motor strength 5/5 Skin: no rashes, warm and dry normal turgor Neurologic: PERRL, EOMI, accommodation nl, no face palsy, no dysarthria CN's II- XI intact bilaterally and moves all extremities Psychiatric: A+Ox3, euthymic affect Discharge Data Allergies Allergy/AdvReac Type Severity Reaction Status Date / Time No Known Allergies Allergy Unverified 07/02/24 09:52 Consultations 07/02/24 07:46 ED Decision to Admit Stat 07/02/24 09:11 Consult Carpenter Packing Routine 07/02/24 09:59 Consult Cardiology Routine Procedures Performed Operation Date: 07/02/24 07:45 Actual Procedures p Aspiration/PCI w/KADEN for Stemi - Shade Davidson MD, PhD s Cineradiography w/Routine Exam - Shade Davidson MD, PhD Ordered Studies 07/02/24 07:37 CL Cath Imgs for PACS use only Stat Hospital Course (1) ST elevation (STEMI) myocardial infarction: (2) CAD (coronary artery disease): (3) HTN (hypertension): (4) SARS-CoV-2 positive: Plan Acute NSTEMI status post PCI of large OM branch of circumflex Patient presented with chest discomfort and diaphoresis. EKG on admission showed inferior posterior acute NSTEMI Heart alert was called; patient underwent placement of 3 stents in left circumflex Transient nonsustained ventricular tachycardia in ED Echo shows EF of 50 to 55%; hypokinesis and in some segment dyskinesis of mid to distal posterior lateral wall. After cardiac cath; patient was ordered during ICU overnight. No events on telemetry was noted. She did not have any recurrence of chest pain/discomfort. Patient was discharged home on aspirin, Plavix, lisinopril, metoprolol and high- dose rosuvastatin. Patient reported that she will make her own appointment with primary care doctor at [facility]. Patient to follow-up with cardiology as well. COVID-19 infection Patient is asymptomatic; saturated well on room air throughout the hospitalization. Please note the above document was generated using voice recognition software. It may contain grammatical, syntax or spelling errors. Any formal questions or concerns about the content, text or information contained within the body of this dictation should be directly addressed to the provider for clarification Total Time Total Time Spent Total Time Spent (In Minutes): 45 Total Time Includes: Examination of the Patient, Discharge Planning, Medication Reconciliation, Communication With Other Providers and Other Discharge Plan Discharge Items Patient Disposition: Home - Self-Care Reason For Visit: STEMI Discharge Diagnosis: Acute STEMI status post stent placement Activity: Resume your previous activity Non-emergency contact: Primary Care Provider Call non-emergency contact if: you have any medication questions and your symptoms worsen Follow-up/Referrals: PCP,NO [Primary Care Provider] - Diet: Regular Addtl Attending Provider Instructions: You were admitted to the hospital with a heart attack. You underwent cardiac cath with placement of 3 stent in one of your heart vessels. Please take the following medications; Aspirin 81 mg once a day Plavix 75 mg once a day Metoprolol succinate 25 mg once a day Lisinopril 5 mg once a day Rosuvastatin 40 mg once a day Please follow-up with cardiology and PCP. It is very important that you take the prescribed medication; contact your PCP for refills. Pending Studies at Discharge: No Stand-Alone Forms: My [facility], Work/School Release, Smoking Cessation Medications and DC Order Prescriptions: New clopidogrel 75 mg Tablet 75 mg PO QAM 90 Days Qty: 90 0RF lisinopril [Zestril] 5 mg Tablet 5 mg PO QAM 90 Days Qty: 90 0RF rosuvastatin 40 mg tablet 40 mg PO DAILY Qty: 90 0RF metoprolol succinate 25 mg Tablet Extended Release 24 Hr 25 mg PO QAM 90 Days Qty: 90 0RF aspirin 81 mg capsule 81 mg PO DAILY Qty: 90 0RF Discontinued lisinopril 20 mg tablet 20 mg PO QAM Discharge Orders: Discharge Order (Routine); Ordered 07/03/24 Ordered By: Richi Steinberg Admission Data Admit Date/Time: 07/02/24 08:10 Attending Provider: Richi Steinberg Admit Provider: Richi Steinberg Primary Care Provider: PCP,NO Other Providers: Richi Steinberg; Rosina Bethea; Shade Mensah; Chandrakant Lin; Sammy Castro; Margarito Tran; Ambrose Olivera; Amy Ernst; Sandi Sandoval; Ana Loving; Rosina Wilson; Max Bar; Mansoor Chin; Becky Fabian; Monica Ruggiero; Aviva Blakely; Susan Westfall; Sean Marc; Dang Hammond; Jessica Nieves; Addison Perry Other Interventions: Discharge Summary Assessment (RN) Last Done: 07/03/24 11:16
[2024-07-03 13:11] VITALS: BP 115/74
[2024-07-04] MEDS ORDERED: METOPROLOL SUCC 25MG EXT REL TAB PO SCH (09:00)
== END 2024-07-03 13:22 | disposition home or self-care (01) | DRG 321 ==
LOC: ED 07:13 → CC 08:02 → 1E 08:10 → SUATTDRO 08:10 → CC 08:32 → 1E 10:16